=== PATIENT | female | born 1945 | race Caucasian/White ===

== ENCOUNTER 2017-01-21 12:28 | Inpatient (IN) | payer OTHER, MEDICARE ==
[~2017-01-21] VITALS: Ht 167.6 cm; Wt 108.6 kg
[~2017-01-21 12:28] MED LIST: BACTRIM DS 8001 TAB PO; CLINDAMYCIN HY300 MG PO
--- NOTE | 2017-01-21 12:40 | NUR ---
BIBA FROM HOME C/O SOB AND COUGH FOR 3-5 DAYS, "FEELS LIKE I HAVE BRONCHITIS", FOUND BY EMS TO HAVE RA SAT IN HIGH 80S. ON ARRIVAL RA SAT 85, MID 90S ON 3L 02, PT INITIALLY DENIES LUNG DISEASE THEN STATES "ONE DOCTOR SAID I HAD COPD BUT I THINK HE'S WRONG." HX SMOKING. HX AFIB, AFIB ON ARRIVAL 90-120S, DENIES CP.
--- NOTE | 2017-01-21 13:03 | ED DYSPNEA/ASTHMA COMPLAINT ---
See Addendum History of Present Illness General Chief Complaint: Dyspnea (COPD, CHF, Other) Stated Complaint: BIBA DYSPNEA Source: patient Exam Limitations: no limitations Vital Signs & Intake/Output Vital Signs & Intake/Output Vital Signs Date Time Temp Pulse Resp B/P Pulse O2 O2 Flow FiO2 Ox Delivery Rate 01/22 2104 Nasal 4.0L Cannula 01/21 1939 97.4 123 22 154/64 94 Nasal 3.0L Cannula 01/21 1830 98.5 106 22 146/76 93 Nasal 3.0L Cannula 01/21 1809 98.5 126 22 139/85 01/21 1759 98.5 126 22 139/85 94 Nasal 3.0L Cannula 01/21 1616 98.8 112 25 128/59 95 Nasal 3.0L Cannula 01/21 1554 93 Nasal 3.5L Cannula 01/21 1437 100.4 116 22 117/52 94 Nasal 3.0L Cannula 01/21 1334 105 26 142/60 98 Aerosol 6.0L Mask 01/21 1323 93 Nasal 3.0L Cannula 01/21 1310 99.8 131 22 151/67 01/21 1247 96 Nasal 3.0L Cannula 01/21 1234 99.8 131 22 151/67 95 Nasal 3.0L Cannula Allergies Coded Allergies: Penicillins (Severe, HYPOTENSION 01/21/17) clindamycin (Severe, RASH, HIVES 01/21/17) Triage Note: BIBA FROM HOME C/O SOB AND COUGH FOR 3-5 DAYS, "FEELS LIKE I HAVE BRONCHITIS", FOUND BY EMS TO HAVE RA SAT IN HIGH 80S. ON ARRIVAL RA SAT 85, MID 90S ON 3L 02, PT INITIALLY DENIES LUNG DISEASE THEN STATES "ONE DOCTOR SAID I HAD COPD BUT I THINK HE'S WRONG." HX SMOKING. HX AFIB, AFIB ON ARRIVAL 90-120S, DENIES CP. Triage Nurses Notes Reviewed? yes Onset: Gradual Duration: day(s): (3) Timing: recent history Severity: moderate Activities at Onset: none Prior Episodes/Possible Cause: occasional episodes Modifying Factors: Improves With: immobilization. Worsens With: movement. HPI: Patient is a 71-year-old female with history of atrial fibrillation, COPD, peripheral vascular disease presenting to the emergency department with chief complaint of increasing shortness of breath, productive cough of yellow sputum over the past 3 days. Tactile fevers and chills. No sick contacts or recent travel. She does not wear oxygen at home. Denies any palpitations. No abdominal pain. No nausea or vomiting. Denies any change in by mouth intake. Denies any urinary symptoms. Exertion seems to make her symptoms worse nothing seems to make it better. Denies taking anything [id number] to help with her symptoms. (ANI GNA) Reconcile Medications Aspirin (Aspirin*) 325 MG TABLET 1 TAB PO DAILY A FIB (Reported) Metoprolol Succinate 100 MG TAB.ER.24H 1 TAB PO DAILY HEART (Reported) Venlafaxine HCl (Venlafaxine HCl ER) 75 MG CAP.ER.24H 1 CAP PO DAILY MENTAL HEALTH (Reported) (JANINA BILLINGS DO) Past History Travel History Traveled to [place] past 21 day No Medical History Any Pertinent Medical History? 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 No (ANI GAN) Review of Systems Review of Systems Constitutional: Reports: fever, malaise. Comments Review of systems: See HPI, All other systems negative. Constitutional, no chills fever or weight loss HEENT: No visual changes no sore throat Cardiovascular: No chest pain ,palpitation , orthopnea or ankle swelling Skin, no jaundice no rashes Respiratory: No hemoptysis GI: No nausea no vomiting : No dysuria No hematuria Muscle skeletal: no back pain, no neck pain, Neurologic: No numbness no confusion, no headaches Psych: No stress anxiety or depression,. Heme/endocrine: No bruising no bleeding no polyuria or polydipsia Immunology: No splenectomy or history of AIDS (ANI GAN) Physical Exam Physical Exam General Appearance: well developed/nourished, alert, awake, mild distress Respiratory: INCREASED RESPIRATORY DISTRESS Comments: Well-developed well-nourished person in mild to moderate distress HEENT: Normal EENT exam, extraocular motion intact, no nystagmus. Pupils equally round and reactive to light and accommodation. Nose is atraumatic. External auditory canal and Tympanic membranes clear. Pharynx is mildly erythematous, no exudate, clearing secretions without difficulty. Oral mucosa slightly dry. No swelling or edema. Neck: Supple, no lymphadenopathy, normal range of motion without pain or tenderness Back: Nontender, no CVA tenderness. Full range of motion Cardiovascular: Tachycardic rate, irregular rhythm. Respiratory: Chest nontender. Moderate respiratory distress..diffuse rhonchi to auscultation bilaterally Abdomen: Soft, nontender nondistended, no appreciable organomegaly. Normal bowel sounds. No ascites Extremity: 3+ pitting in the lower extremities bilaterally., no calf tenderness to palpation, normal and equal pulses. Neuro: Alert oriented x3 Skin: Mild erythema in the right lower extremity, no warmth to palpation. Psych: Mood and affect is normal, memory and judgment is normal. Core Measures ACS in differential dx? Yes Severe Sepsis Present: Yes BC x2: Yes Lactic Acid x2: Yes IV ABX Broad Spectrum: Yes NS/LR Started: Yes Septic Shock Present: No (RAN SYED,ANI) Progress Differential Diagnosis: asthma, bronchitis, CHF, COPD, musculoskeletal pain, pulmonary embolism, pneumonia Plan of Care: Orders Procedure Date/time Status Heart Healthy Diet 01/22 B Active CBC WITHOUT DIFFERENTIAL 01/22 0600 Active BASIC ELECTROLYTES PLUS BUN&CR 01/22 0600 Active TROPONIN LEVEL 01/22 0100 Active EKG 01/22 0100 Active RT: Evaluation 01/21 2046 Active OXYGEN SETUP (GEN) 01/21 2000 Complete Intake & Output 01/21 1940 Active TROPONIN LEVEL 01/21 1900 Complete LACTIC ACID 01/21 1900 Complete EKG 01/21 1900 Active Patient Data 01/21 1757 Active TRC EVALUATION (GEN) 01/21 1721 Complete Pathway - chart 01/21 172 Active House Staff 01/21 1721 Active Patient Data 01/21 1721 Active RAPID VIRAL INFLUENZA A 01/21 172 Complete CULTURE,URINE 01/21 1721 Active STREP PNEUMO URINARY ANTIGEN 01/21 172 Active LEGIONELLA URINARY ANTIGEN 01/21 172 Active LOWER RESPIRATORY CULTURE 01/21 1721 Active URINALYSIS 01/21 1721 Complete Code Status 01/21 1721 Active CULTURE,STOOL 01/21 1706 Active C.DIFFICILE 01/21 1706 Active US-EXT BILAT VENOUS DOPPLER 01/21 1703 Active Patient Data 01/21 1631 Active Admit to inpatient 01/21 1627 Active LACTIC ACID 01/21 1603 Complete BLOOD CULTURE 01/21 1505 Active Telemetry/Filer Metal Patterns 01/21 1303 Active TROPONIN LEVEL 01/21 1303 Complete PARTIAL THROMBOPLASTIN TIME 01/21 1303 Complete PROTHROMBIN TIME 01/21 1303 Complete LACTIC ACID 01/21 1303 Complete COMPREHENSIVE METABOLIC PANEL 01/21 1303 Complete CBC WITHOUT DIFFERENTIAL 01/21 1303 Complete B-TYPE NATRIURETIC PEP (BNP) 01/21 1303 Complete EKG 01/21 1230 Active THERAPIST ORDERS 01/21 UNK Complete VTE Mechanical Prophylaxis 01/21 UNK Active Vital Signs 01/21 UNK Active Current Medications Sig/Harmony Start time Last Medication Dose Stop Time Status Admin Aspirin 325 MG DAILY 01/22 1000 AC (Aspirin) Azithromycin 500 MG DAILY 01/22 1000 AC (Zithromax) Sodium Chloride 250 ML (Normal Saline 0.9%) Ceftriaxone Sodium 1,000 MG DAILY 01/22 1000 AC (Rocephin) Metoprolol Succinate 100 MG DAILY 01/22 1000 AC (Toprol Xl) Venlafaxine HCl 75 MG DAILY 01/22 1000 AC (Effexor Xr) Heparin Sodium 5,000 UNIT Q8 01/21 2200 AC (Porcine) Methylprednisolone 40 MG Q12 01/21 2200 AC (Solumedrol) Acetaminophen 650 MG Q6P PRN 01/21 1730 AC (Tylenol) Acetaminophen/ 1 TAB Q6P PRN 01/21 1730 AC Hydrocodone Bitart (Vicodin) Oxycodone/ 2 TAB Q6P PRN 01/21 1730 AC Acetaminophen (Percocet) Sodium Chloride 1,000 ML ONCE ONE 01/21 1730 AC (Normal Saline 0.9%) 01/22 0129 Laboratory Tests 01/21/17 1935: Lactic Acid 1.8, Troponin I 0.02 01/21/17 175: Urine Color YEL, Urine Clarity HAZY H, Urine pH 6.0, Ur Specific [place] >= 1.030, Urine Protein 100 H, Urine Ketones NEG, Urine Nitrite NEG, Urine Bilirubin NEG, Urine Urobilinogen 0.2, Ur Leukocyte Esterase NEG, Ur Microscopic SEDIMENT EXAMINED, Urine RBC 1-3, Urine WBC 1-3 H, Ur Epithelial Cells MANY H, Urine Mucus FEW, Urine Hemoglobin TRACE-INTACT, Urine Glucose 250 H 01/21/17 1543: Lactic Acid 2.5 H 01/21/17 1317: Anion Gap 7, Estimated GFR > 60, BUN/Creatinine Ratio 30.0 H, Glucose 248 H, Lactic Acid 1.9, Calcium 8.6, Total Bilirubin 0.9, AST 59 H, ALT 91 H, Alkaline Phosphatase 99, Troponin I < 0.01, Sgk-J-Fxdymewmeys Pept 442 H, Total Protein 6.4, Albumin 3.4 L, Globulin 3.0, Albumin/Globulin Ratio 1.1, PT 12.1, INR 1.15, APTT 27, CBC w Diff NO MAN DIFF REQ, RBC 4.95, MCV 89.4, MCH 29.7, RDW 12.9, MPV 9.5, Gran % 74.9, Lymphocytes % 15.8 L, Monocytes % 8.1, Eosinophils % 0.7, Basophils % 0.5, Absolute Granulocytes 5.4, Absolute Lymphocytes 1.1 L, Absolute Monocytes 0.6, Absolute Eosinophils 0.1, Absolute Basophils 0, PUBS MCHC 33.2 Microbiology 01/21 1757 URINE ROUT: Legionella Antigen - RES 01/21 1757 URINE ROUT: Streptococcus pneumoniae Antigen (M - RES 01/21 1757 URINE ROUT: Urine Culture - RES 01/22 1756 NASOPHARYN: Influenza Virus A & B Rapid Smear - COMP 01/21 172 LOWER RESP: Respiratory Culture - COLB 01/21 172 LOWER RESP: Gram Stain - COLB 01/21 170 STOOL: Clostridium difficile Toxin A & B - COLB 01/21 170 STOOL: Stool Culture - COLB 01/21 1543 BLOOD: Blood Culture - RECD 01/21 1230 BLOOD: Blood Culture - RECD Diagnostic Imaging: Viewed by Me: Radiology Read, CT Scan. Discussed w/RAD: Radiology Read, CT Scan. Radiology Impression: PATIENT: JOCELYN HAYES PRESENT AGE: 71 PATIENT ACCOUNT NO: [id number] : 44 LOCATION: [facility] ORDERING PHYSICIAN: ANI SYED SERVICE DATE: 03/23/17-1413 EXAM TYPE: CAT - CT CHEST WO IV CONTRAST EXAMINATION: CT CHEST WITHOUT CONTRAST CLINICAL INFORMATION: Shortness of breath, cough COMPARISON: Frontal view of the chest 01/21/17 TECHNIQUE: Multidetector volumetric CT imaging of the chest was done. Axial MIP volume rendering provided. Sagittal and coronal reformatted images were obtained. DLP: 935 mGy-cm FINDINGS: LAYOUT FORMER: Tortuous aorta. Prominent cardiac silhouette. No lobar or segmental consolidation. Gaseous distention in the visualized abdomen LUNGS: No abnormality of the trachea or mainstem bronchi. Right lung: Noncalcified nodule or localized area of airway thickening Central aspect anterior segment right upper lobe 01/21/17, series 5, image 231-0.4 cm Pleural-based noncalcified nodule in the periphery of the superior segment right lower lobe laterally 01/21/17, series 5, image 263-mean diameter 0.4 cm There are 2 adjacent noncalcified nodules in the lateral segment middle lobe 01/21/17, series 5, image 274-0.4 cm each Noncalcified subpleural nodule lateral aspect right lower lobe 01/21/17, series 5, image 280-0.4 cm There is some motion artifact limiting assessment of the bases. There are some scattered poorly defined densities which could represent airway thickening. Small nodules could be present. Left lung: There are some tree-in-bud opacities in the apical posterior left upper lobe. There is moderate and small airway thickening in the mid and lower left lung. There is some airway thickening in the right lower lung. MEDIASTINUM: There are some scattered nonenlarged mediastinal lymph nodes. The main pulmonary artery is prominent. There is no pericardial fluid. The left atrium is dilated. There is no suspicious abnormality of the esophagus. There is ectasia of the descending aorta (4.2 cm at the level of left atrium) PLEURA: There is no pleural effusion. No pleural mass or thickening. AXILLA: No lymphadenopathy. UPPER ABDOMEN: I suspect fatty change in the liver. No suspicious mass. OSSEOUS STRUCTURES: No suspicious focal lesion IMPRESSION: There is some cardiomegaly. There is no edema. There is a small area of tree-in- bud opacity in the apical posterior left upper lobe which may represent a small area of pneumonia. There is thickening of some of the small airways perhaps related to reactive airways disease or chronic inflammation. There are several nodules present. The largest has a mean diameter of 0.4 cm According to the UPDATED 2017 Fleischner Society recommendations, the advised follow-up imaging for solid nodules < 6 mm is: LOW RISK PATIENT: No routine follow-up. HIGH RISK PATIENT: Optional CT at 12 months. DICTATED BY: RENETTA VARGAS MD DATE/TIME DICTATED:01/21/171443 [facility] DIRECTOR:LADI DATE/TIME TRANSCRIBED:1443 CONFIDENTIAL, DO NOT COPY WITHOUT APPROPRIATE AUTHORIZATION. < Electronically signed in Other Vendor System> , PATIENT: JOCELYN HAYES PRESENT AGE: 71 PATIENT ACCOUNT NO: [id number] : 44 LOCATION: [facility] ORDERING PHYSICIAN: ANI SYDE SERVICE DATE: 01/21/17 EXAM TYPE: CAT - CT CHEST WO IV CONTRAST EXAMINATION: CT CHEST WITHOUT CONTRAST CLINICAL INFORMATION: Shortness of breath , cough COMPARISON: Frontal view of the chest 01/21/17 TECHNIQUE: Multidetector volumetric CT imaging of the chest was done. Axial MIP volume rendering provided. Sagittal and coronal reformatted images were obtained. DLP: 935 mGy-cm FINDINGS: LAYOUT FORMER: Tortuous aorta. Prominent cardiac silhouette. No lobar or segmental consolidation. Gaseous distention in the visualized abdomen LUNGS: No abnormality of the trachea or mainstem bronchi. Right lung: Noncalcified nodule or localized area of airway thickening Central aspect anterior segment right upper lobe 01/21/17, series 5, image 231-0.4 cm Pleural-based noncalcified nodule in the periphery of the superior segment right lower lobe laterally 01/21, series 5, image 263-mean diameter 0.4 cm There are 2 adjacent noncalcified nodules in the lateral segment middle lobe 01/21/17, series 5, image 274-0.4 cm each Noncalcified subpleural nodule lateral aspect right lower lobe 01/21/17, series 5, image 280-0.4 cm There is some motion artifact limiting assessment of the bases. There are some scattered poorly defined densities which could represent airway thickening. Small nodules could be present. Left lung: There are some tree-in-bud opacities in the apical posterior left upper lobe. There is moderate and small airway thickening in the mid and lower left lung. There is some airway thickening in the right lower lung. MEDIASTINUM: There are some scattered nonenlarged mediastinal lymph nodes. The main pulmonary artery is prominent. There is no pericardial fluid. The left atrium is dilated. There is no suspicious abnormality of the esophagus. There is ectasia of the descending aorta (4.2 cm at the level of left atrium) PLEURA: There is no pleural effusion. No pleural mass or thickening. AXILLA: No lymphadenopathy. UPPER ABDOMEN: I suspect fatty change in the liver. No suspicious mass. OSSEOUS STRUCTURES: No suspicious focal lesion IMPRESSION: There is some cardiomegaly. There is no edema. There is a small area of tree-in-bud opacity in the apical posterior left upper lobe which may represent a small area of pneumonia. There is thickening of some of the small airways perhaps related to reactive airways disease or chronic inflammation. There are several nodules present. The largest has a mean diameter of 0.4 cm According to the UPDATED 2017 Fleischner Society recommendations, the advised follow-up imaging for solid nodules < 6 mm is: LOW RISK PATIENT: No routine follow-up. HIGH RISK PATIENT: Optional CT at 12 months. DICTATED BY: RENETTA VARGAS MD DATE/TIME DICTATED:01/21/171443 [facility] DIRECTOR:LADI DATE/TIME TRANSCRIBED:01/21/171443 CONFIDENTIAL, DO NOT COPY WITHOUT APPROPRIATE AUTHORIZATION. <Electronically signed in Other Vendor System> SIGNED BY: RENETTA VARGAS MD 01/21/17 1501 Initial ED EKG: RAPID ATRIAL FIBRILLATION AT 135 BPM Prior EKG: changed Comments: On arrival patient in respiratory distress with diffuse rhonchi on exam. She does have lower extremities edema. Patient also in rapid A. fib on EKG and the monitor. Patient will for chest x-ray, CBC, CMP, troponin, telemetry monitoring. Patient given IV Cardizem for rate control. She reports that she normally takes metoprolol to help with rate control. Has been taking it. Also given to attempt treatment to see if he can break up some of the rhonchi. Patient is afebrile at this time but reports history of fevers over the past couple days. We will draw blood cultures. Patient informed of all imaging results and x-ray results. CT further clarifies the patient does have pneumonia. No elevation in white blood cell count time the patient is now spiking a fever. Hypoxic to 82% on room air with ambulation of 10 feet. It was strongly advised for this patient to stay, be admitted for IV antibiotics, oxygen therapy which is new for this patient, rate control for rapid A. fib. Atrial fibrillation seems to be responding to Cardizem EXCEPT patient exerts herself heart rate goes back to up to 120 to 130. (RAN SYED,ANI) Radiology Impression: PATIENT: JOCELYN HAYES PRESENT AGE: 71 PATIENT ACCOUNT NO: [id number] : 44 LOCATION: [facility] ORDERING PHYSICIAN: ANI SYDE SERVICE DATE: 01/21/17 EXAM TYPE: CAT - CT CHEST WO IV CONTRAST EXAMINATION: CT CHEST WITHOUT CONTRAST CLINICAL INFORMATION: Shortness of breath, cough COMPARISON: Frontal view of the chest 01/21/17 TECHNIQUE: Multidetector volumetric CT imaging of the chest was done. Axial MIP volume rendering provided. Sagittal and coronal reformatted images were obtained. DLP: 935 mGy-cm FINDINGS: LAYOUT FORMER: Tortuous aorta. Prominent cardiac silhouette. No lobar or segmental consolidation. Gaseous distention in the visualized abdomen LUNGS: No abnormality of the trachea or mainstem bronchi. Right lung: Noncalcified nodule or localized area of airway thickening Central aspect anterior segment right upper lobe 01/21/17, series 5, image 231-0.4 cm Pleural-based noncalcified nodule in the periphery of the superior segment right lower lobe laterally 01/21/17, series 5, image 263-mean diameter 0.4 cm There are 2 adjacent noncalcified nodules in the lateral segment middle lobe 01/21/17, series 5, image 274-0.4 cm each Noncalcified subpleural nodule lateral aspect right lower lobe 01/21/17, series 5, image 280-0.4 cm There is some motion artifact limiting assessment of the bases. There are some scattered poorly defined densities which could represent airway thickening. Small nodules could be present. Left lung: There are some tree-in-bud opacities in the apical posterior left upper lobe. There is moderate and small airway thickening in the mid and lower left lung. There is some airway thickening in the right lower lung. MEDIASTINUM: There are some scattered nonenlarged mediastinal lymph nodes. The main pulmonary artery is prominent. There is no pericardial fluid. The left atrium is dilated. There is no suspicious abnormality of the esophagus. There is ectasia of the descending aorta (4.2 cm at the level of left atrium) PLEURA: There is no pleural effusion. No pleural mass or thickening. AXILLA: No lymphadenopathy. UPPER ABDOMEN: I suspect fatty change in the liver. No suspicious mass. OSSEOUS STRUCTURES: No suspicious focal lesion IMPRESSION: There is some cardiomegaly. There is no edema. There is a small area of tree-in- bud opacity in the apical posterior left upper lobe which may represent a small area of pneumonia. There is thickening of some of the small airways perhaps related to reactive airways disease or chronic inflammation. There are several nodules present. The largest has a mean diameter of 0.4 cm According to the UPDATED 2017 Fleischner Society recommendations, the advised follow-up imaging for solid nodules < 6 mm is: LOW RISK PATIENT: No routine follow-up. HIGH RISK PATIENT: Optional CT at 12 months. DICTATED BY: RENETTA VARGAS MD DATE/TIME DICTATED:01/21/171443 [facility] DIRECTOR:LADI DATE/TIME TRANSCRIBED:1443 CONFIDENTIAL, DO NOT COPY WITHOUT APPROPRIATE AUTHORIZATION. < Electronically signed in Other Vendor System> (JANINA BILLINGS DO) Departure Departure Time of Disposition: 1626 Disposition: STILL A PATIENT Condition: Stable Clinical Impression Primary Impression: Pneumonia Qualifiers: Pneumonia type: due to unspecified organism Laterality: right Lung location: lower lobe of lung Qualified Code: J18.1 - Lobar pneumonia, unspecified organism Secondary Impressions: Lactic acidosis, Rapid atrial fibrillation Referrals: YUNG PLUMMER,CELE Ordoñez (PCP/Family) Departure Forms: Customer Survey General Discharge Information Admission Note Spoke With: STEFANI PLUMMER,EDGARDO Documentation of Exam: Documentation of any treatments & extenuating circumstances including Concerns Regarding Discharge (functional status, medication knowledge or non-compliance, living conditions, etc.) that warrant an admission rather than observation: Patient requiring telemetry monitoring, IV antibiotics, blood cultures to return to rule out sepsis, supplemental oxygen which is new for this patient, may require pulmonology consultation. May require cardiology consultation and secondary to rapid atrial fibrillation. Discharge at this time would be medically harmful. Titration of O2. (ANI GAN) Admission Note Documentation of Exam: Documentation of any treatments & extenuating circumstances including Concerns Regarding Discharge (functional status, medication knowledge or non-compliance, living conditions, etc.) that warrant an admission rather than observation: 01/21/17 4:33 PM I've seen and personally examined the patient. I have evaluated her numerous times. She came in rapid A. fib and difficulty breathing. She was given Cardizem. She has congestion consistent with COPD and is an ex-smoker. She is being admitted to the hospitalist service for further care. Her oxygen saturation is adequate on O2. PA/HEEL SLUGGER Co-Sign Statement Statement: ED Attending supervision documentation- [x] I saw and evaluated the patient. I have also reviewed all the pertinent lab results and diagnostic results. I agree with the findings and the plan of care as documented in the PA's/HEEL SLUGGER's documentation. [] I have reviewed the ED Record and agree with the PA's/HEEL SLUGGER's documentation. [] Additions or exceptions (if any) to the PAs/HEEL SLUGGER's note and plan are summarized below: [] 71-year-old female was seen for rapid A. fib and difficulty breathing. She has a history of COPD. She had bilateral expiratory wheezes. CT scan showed likely pneumonia. She was admitted to the hospital for further care. (JANINA BILLINGS DO) Critical Care Note Critical Care Note Critical Care Time: 75-104 min (ANI GAN)
[2017-01-21 13:25] LABS: ABSOLUTE BASOPHIL COUNT 0 /CUMM (0.0-0.2); ABSOLUTE EOSINOPHIL COUNT 0.1 /CUMM (0.0-0.7); ABSOLUTE GRANULOCYTE CT 5.4 /CUMM (1.4-6.5); ABSOLUTE LYMPH COUNT 1.1 /CUMM (1.2-3.4); ABSOLUTE MONOCYTE COUNT 0.6 /CUMM (0.10-0.60); BASOPHIL % 0.5 % (0.0-2.0); EOSINOPHIL % 0.7 % (0-5); GRANULOCYTE % 74.9 % (42.2-75.2); HEMATOCRIT 44.2 % (37-47); MEAN CORPUSCULAR HGB 29.7 PG (27.0-31.0); MEAN CORPUSCULAR HGB CONC 33.2 G/DL (33.0-37.0); MEAN CORPUSCULAR VOLUME 89.4 FL (81.0-99.0); MEAN PLATELET VOLUME 9.5 FL (7.4-10.4); PLATELET COUNT 184 /CUMM (130-400); RBC DISTRIBUTION WIDTH 12.9 % (11.5-14.5); RED BLOOD CELL CT 4.95 /CUMM (4.20-5.40); WHITE BLOOD CELL COUNT 7.2 /CUMM (4.8-10.8)
--- NOTE | 2017-01-21 13:33 | NUR ---
CARDIZEM GIVEN, HR CHANGED FROM 100S-140S TO 70S-120S, REMAINS VERY IRREGULAR. NEB TX IN PROGRESS, PCXR IN PROGRESS. BLOODWORK SENT
[2017-01-21 13:35] LABS: PT 12.1 SEC (9.4-12.5); PTT 27 SEC (25-37)
--- NOTE | 2017-01-21 14:00 | RADIOLOGY REPORT ---
EXAMINATION: XR PORTABLE CHEST CLINICAL INFORMATION: Cough and shortness of breath. COMPARISON: None TECHNIQUE: Portable AP 80 degrees view of the chest was obtained. FINDINGS: The lung volumes are hypoinflated. There is crowding of the markings at the lung bases. Possible opacity at the right lung base. The cardiac silhouette appears enlarged with vascular congestion. IMPRESSION: Shallow inspiration limits the examination. There may be a focal area of consolidation at the right lung base. When feasible, recommend PA and lateral chest radiograph for further evaluation.
--- NOTE | 2017-01-21 14:22 | NUR ---
TO CHEST CT NOW. HR 90S-110S, WOB IMPROVED AFTER NEB.
[2017-01-21] MEDS ORDERED: METOPROLOL SUC100 M2 PO (14:30)
[2017-01-21] MEDS ORDERED: VENLAFAXINE HCL75 M1 PO (14:30)
--- NOTE | 2017-01-21 15:01 | CT SCAN REPORT ---
EXAMINATION: CT CHEST WITHOUT CONTRAST CLINICAL INFORMATION: Shortness of breath, cough COMPARISON: Frontal view of the chest 01/21/17 TECHNIQUE: Multidetector volumetric CT imaging of the chest was done. Axial MIP volume rendering provided. Sagittal and coronal reformatted images were obtained. DLP: 935 mGy-cm FINDINGS: GEODETIC COMPUTATOR: Tortuous aorta. Prominent cardiac silhouette. No lobar or segmental consolidation. Gaseous distention in the visualized abdomen LUNGS: No abnormality of the trachea or mainstem bronchi. Right lung: Noncalcified nodule or localized area of airway thickening Central aspect anterior segment right upper lobe 01/21/17, series 5, image 231-0.4 cm Pleural-based noncalcified nodule in the periphery of the superior segment right lower lobe laterally 01/21/17, series 5, image 263-mean diameter 0.4 cm There are 2 adjacent noncalcified nodules in the lateral segment middle lobe 01/21/17, series 5, image 274-0.4 cm each Noncalcified subpleural nodule lateral aspect right lower lobe 01/21/17, series 5, image 280-0.4 cm There is some motion artifact limiting assessment of the bases. There are some scattered poorly defined densities which could represent airway thickening. Small nodules could be present. Left lung: There are some tree-in-bud opacities in the apical posterior left upper lobe. There is moderate and small airway thickening in the mid and lower left lung. There is some airway thickening in the right lower lung. MEDIASTINUM: There are some scattered nonenlarged mediastinal lymph nodes. The main pulmonary artery is prominent. There is no pericardial fluid. The left atrium is dilated. There is no suspicious abnormality of the esophagus. There is ectasia of the descending aorta (4.2 cm at the level of left atrium) PLEURA: There is no pleural effusion. No pleural mass or thickening. AXILLA: No lymphadenopathy. UPPER ABDOMEN: I suspect fatty change in the liver. No suspicious mass. OSSEOUS STRUCTURES: No suspicious focal lesion IMPRESSION: There is some cardiomegaly. There is no edema. There is a small area of tree-in-bud opacity in the apical posterior left upper lobe which may represent a small area of pneumonia. There is thickening of some of the small airways perhaps related to reactive airways disease or chronic inflammation. There are several nodules present. The largest has a mean diameter of 0.4 cm According to the UPDATED 2017 Fleischner Society recommendations, the advised follow-up imaging for solid nodules < 6 mm is: LOW RISK PATIENT: No routine follow-up. HIGH RISK PATIENT: Optional CT at 12 months.
--- NOTE | 2017-01-21 15:27 | NUR ---
PA AT BEDSIDE. PT REQUESTING TO LEAVE AMA. AMBULATORY SAT WALKING LESS THAN 10FT 82 AND PT VERY DISTRESSED, ONLY ABLE TO SPEAK SINGLE WORDS, C/O FEELING "WEAK." ASSISTED TO STRETCHER AND BACK ON . HR IN 140S WITH AMBULATION. 92 SAT RECOVERED TO LOW 90S WITHIN 2-3 MIN.
--- NOTE | 2017-01-21 15:51 | NUR ---
ZITHROMAX UP AFTER 2ND SET CULTURES SENT. RT AT BEDSIDE FOR ALBUTEROL TX. RESTING HR 90-125 AFIB.
--- NOTE | 2017-01-21 16:08 | NUR ---
PT APPEARS MUCH MORE COMFORTABLE WITH NOTABLE DECREASE IN COUGHING AFTER NEB TX. ZITHROMAX INFUSING.
--- NOTE | 2017-01-21 16:09 | NUR ---
CRITICAL TEST RESULTS [id number] JOCELYN HAYES 71 F TESTS AND RESULTS: LACTIC 2.5 Results received and read back by: RADHA ALVARADO Results received date and time: 01/21/17 1609 The following provider was notified of the results, and read the results back: YAHAIRA TONG Notified date and time: 01/21/17 at 1610
--- NOTE | 2017-01-21 17:08 | History & Physical ---
IFEANYI PLUMMER,[facility] 01/21/17 1707: General Information and [facility] MD Statement: I have seen and personally examined JOCELYN HAYES and documented this H&P. The patient is a 71 year old F who presented with a patient stated chief complaint of [shortness of breath]. Source of Information: patient Exam Limitations: no limitations History of Present Illness: Ms. Hayes is 71 year old female with past medical history of atrial fibrillation not on anticoagulation, peripheral vascular disease, bronchitis/ COPD, anxiety and depression who presented to ED with chief complaint of shortness of breath for the last 3 days. Patient reported that since Wednesday she started to have shortness of breath on exertion associated with dry cough, wheeze, chills. Patient denied fever, chest pain, palpitation. She reported using adin-tix-ohewojj Vicks-NyQuil but didn't help, called her PCP who asked her to come to ED for evaluation. Patient reported history of smoking, quit 4 years ago, she mentioned that she used to have bronchitis but never had an episode after she quit smoking 4 years ago. Patient denied abdominal pain, nausea, vomiting, reported episodes of diarrhea. Negative history for sick contact, travel, patient didn't have the flu vaccine this season. She has no clear diagnosis of COPD, not on home oxygen, not following with any stock speculator, frequent history of bronchitis. Allergies/Medications Allergies: Coded Allergies: Penicillins (Severe, HYPOTENSION 01/21/17) clindamycin (Severe, RASH, HIVES 01/21/17) Past History Travel History Traveled to [place] past 21 day No Medical History Neurological: NONE EENT: NONE Cardiovascular: AFIB, PVD Respiratory: bronchitis Gastrointestinal: NONE Hepatic: NONE Renal: NONE Musculoskeletal: fracture, ELBOW FX CELLULITIS Psychiatric: anxiety, depression Endocrine: NONE Blood Disorders: NONE Cancer(s): NONE CHEMIST ORGANIC/Reproductive: NONE Surgical History Surgical History: non-contributory Past Family/Social History Psychosocial History Who Do You Live With? self ETOH Use: denies use Illicit Drug Use: denies illicit drug use Employment History Employment Retired Review of Systems Review of Systems Constitutional: Reports: chills. Denies: fever. Cardiovascular: Denies: chest pain, orthopena, palpitations. Respiratory: Reports: cough, short of breath, wheezing. Denies: sputum production. GI: Reports: diarrhea. Denies: abdominal pain, nausea, vomiting. Genitourinary: Denies: dysuria. Exam & Diagnostic Data Last 24 Hrs of Vital Signs/I&O Vital Signs Date Time Temp Pulse Resp B/P Pulse O2 O2 Flow FiO2 Ox Delivery Rate 01/21 1830 98.5 106 22 146/76 93 Nasal 3.0L Cannula 01/21 1809 98.5 126 22 139/85 01/21 1759 98.5 126 22 139/85 94 Nasal 3.0L Cannula 01/21 1616 98.8 112 25 128/59 95 Nasal 3.0L Cannula 01/21 1554 93 Nasal 3.5L Cannula 01/21 1437 100.4 116 22 117/52 94 Nasal 3.0L Cannula 01/21 1334 105 26 142/60 98 Aerosol 6.0L Mask 01/21 1323 93 Nasal 3.0L Cannula 01/21 1310 99.8 131 22 151/67 01/21 1247 96 Nasal 3.0L Cannula 01/21 1234 99.8 131 22 151/67 95 Nasal 3.0L Cannula Intake & Output 01/21 1600 01/21 0800 01/21 0000 Intake Total Output Total Balance Patient 108.862 kg Weight Physical Exam General Appearance Alert, Oriented X3, Cooperative, No Acute Distress Skin No Rashes, No Breakdown, No Significant Lesion HEENT Atraumatic, PERRLA, EOMI, dry mucous membranes Neck Supple Cardiovascular Normal S1, Normal S2, No Murmurs, irregular Lungs bilateral decreased air entry, diffuse rhonchi and fine expiratory wheeze Abdomen Normal Bowel Sounds, Soft, No Tenderness Neurological Normal Speech, Strength at 5/5 X4 Ext, Normal Tone, Sensation Intact, Cranial Nerves 3-12 NL, Reflexes 2+ Extremities No Clubbing, No Cyanosis, Normal Pulses, right leg erythema, warm, small crusted wound 1x1. Assessment/Plan Assessment: Ms. Hayes is 71 year old female with past medical history of atrial fibrillation not on anticoagulation, peripheral vascular disease, bronchitis/ COPD, anxiety and depression who presented to ED with chief complaint of shortness of breath for the last 3 days. On admission Vital signs Temperature 98.8, MAXIMUM TEMPERATURE 100.4, pulse 112, blood pressure 128/59, respiratory rate 25, 3 L nasal cannula saturation 95% Labs WBC 7.2, H&H 14.7/44.2, platelet 184, sodium 131, potassium 4.3, chloride 94, lactic acid 2.5, AST 59, ALT 91, proBNP 442, coagulation profile WNL, UA negative for UTI Imaging Chest x-ray IMPRESSION: Shallow inspiration limits the examination. There may be a focal area of consolidation at the right lung base. When feasible, recommend PA and lateral chest radiograph for further evaluation. CT chest IMPRESSION: There is some cardiomegaly. There is no edema. There is a small area of tree-in-bud opacity in the apical posterior left upper lobe which may represent a small area of pneumonia. There is thickening of some of the small airways perhaps related to reactive airways disease or chronic inflammation. There are several nodules present. The largest has a mean diameter of 0.4 cm Problem list #COPD exacerbation #Acute hypoxic respiratory failure #Community-acquired pneumonia versus a typical pneumonia #Right lower limb cellulitis/DVT #Atrial fibrillation with rapid ventricular response #Spesis #COPD exacerbation #Acute hypoxic respiratory failure #Community-acquired pneumonia versus a typical pneumonia #Sepsis due to pneumonia and/or cellulitis infectious process -Admit to general med floor -Start ceftriaxone and azithromycin to cover the pneumonia and right lower leg cellulitis -Continue nasal cannula at 3 L, titrate as tolerated keep saturation more than 92% -TRC and nebs -Follow up lactic acid and trend down #Right lower limb cellulitis/DVT -We'll obtain venous Doppler ultrasound to rule out DVT -Ceftriaxone and azithromycin will cover for cellulitis as well #Atrial fibrillation with rapid ventricular response -Continue home medication -Obtain cardiology consultation, Dr. Bales -[facility] -DVT prophylaxis heparin subcutaneous -Code full Consultation cardiology As Ranked By This Provider Problem List: 1. Cellulitis 2. Lactic acidosis 3. Rapid atrial fibrillation 4. Pneumonia Qualifiers Pneumonia type: due to unspecified organism Laterality: right Lung location: lower lobe of lung Qualified Code: J18.1 - Lobar pneumonia, unspecified organism Core Measures/Miscellaneous Acute Coronary Syndrome ACS Diagnosis: No Cerebrovascular Accident CVA/TIA Diagnosis: No Congestive Heart Failure CHF Diagnosis: No Venous Thromboembolism VTE Risk Factors: Age > 40 [facility] V[facility] prophylaxis d/t: Suspected DVT of LE No VTE Pharm Prophylaxis d/t: No contraindications VTE Diagnosis: No VTE Type: Deep Venous Thrombosis VTE Confirmed by (Test): UNILATERAL VENOUS DOPPLER Severe Sepsis Severe Sepsis Present: Yes BC x2: Yes Lactic Acid x2: Yes IV ABX Broad Spectrum: Yes NS/LR Started: Yes Septic Shock Septic Shock Present: No Miscellaneous Documentation Attending Case Discussed With: EDGARDO KO MD Primary Care Physician: CELE BARRAGAN MD Patient sees these Specialists Cardiology Level of Patient Care: Telemetry EDGARDO KO MD 01/21/17 1711: Attending MD Review Statement Attending Statement Attending MD Statement: examined this patient, discuss w/resident/PA/SKEIN YARN DYER HELPER, agreed w/resident/PA/SKEIN YARN DYER HELPER, reviewed EMR data (avail), discussed with nursing, reviewed images, amended to note Attending Assessment/Plan: 71 y/o F with past medical history significant for A. fib, hypertension, depression, question COPD and peripheral vascular disease who presented with shortness of breath and dyspnea on exertion. She has been feeling sick from last 3 or 4 days. She is coughing but unable to bring much sputum. She was feeling very short of breath and wheezy and was using NyQuil but symptoms did not improve. She denies any fevers and chills. She also claims that she has some chronic swelling on her lower extremities. She denies any pain in the lower extremities. She denies any chest pain, abdominal pain, nausea or vomiting. She did complain of diarrhea few times. Vital Signs Date Time Temp Pulse Resp B/P Pulse O2 O2 Flow FiO2 Ox Delivery Rate 01/21 1616 98.8 112 25 128/59 95 Nasal 3.0L Cannula 01/21 1554 93 Nasal 3.5L Cannula 01/21 1437 100.4 116 22 117/52 94 Nasal 3.0L Cannula 01/21 1334 105 26 142/60 98 Aerosol 6.0L Mask 01/21 1323 93 Nasal 3.0L Cannula 01/21 1310 99.8 131 22 151/67 01/21 1247 96 Nasal 3.0L Cannula 01/21 1234 99.8 131 22 151/67 95 Nasal 3.0L Cannula on exam; aox3, nad. coughing. cv; s1,s2, irregular. resp; + wheezing and junky breath sounds overall. abd; soft, nt, obese, bs+ ext; 1+ edema. skin; + erythema on rle. Laboratory Tests 01/21 01/21 1543 1317 Chemistry Sodium (137 - 145 mmol/L) 131 L Potassium (3.5 - 5.1 mmol/L) 4.3 Chloride (98 - 107 mmol/L) 94 L Carbon Dioxide (22 - 30 mmol/L) 30 Anion Gap (5 - 16) 7 BUN (7 - 17 mg/dL) 15 Creatinine (0.5 - 1.0 mg/dL) 0.5 Estimated GFR (>60 ml/min) > 60 BUN/Creatinine Ratio (7 - 25 %) 30.0 H Glucose (65 - 99 mg/dL) 248 H Lactic Acid (0.7 - 2.1 mmol/L) 2.5 H 1.9 Calcium (8.4 - 10.2 mg/dL) 8.6 Total Bilirubin (0.2 - 1.3 mg/dL) 0.9 AST (14 - 36 U/L) 59 H ALT (9 - 52 U/L) 91 H Alkaline Phosphatase (<127 U/L) 99 Troponin I (< 0.11 ng/ml) < 0.01 Few-Q-Scozqrmfbcb Pept (<125 pg/mL) 442 H Total Protein (6.3 - 8.2 g/dL) 6.4 Albumin (3.5 - 5.0 g/dL) 3.4 L Globulin (1.9 - 4.2 gm/dL) 3.0 Albumin/Globulin Ratio (1.1 - 2.2 %) 1.1 Coagulation PT (9.4 - 12.5 SEC) 12.1 INR (0.90 - 1.19) 1.15 APTT (25 - 37 SEC) 27 Hematology CBC w Diff NO MAN DIFF REQ WBC (4.8 - 10.8 /CUMM) 7.2 RBC (4.20 - 5.40 /CUMM) 4.95 Hgb (12.0 - 16.0 G/DL) 14.7 Hct (37 - 47 %) 44.2 MCV (81.0 - 99.0 FL) 89.4 MCH (27.0 - 31.0 PG) 29.7 RDW (11.5 - 14.5 %) 12.9 Plt Count (130 - 400 /CUMM) 184 MPV (7.4 - 10.4 FL) 9.5 Gran % (42.2 - 75.2 %) 74.9 Lymphocytes % (20.5 - 51.1 %) 15.8 L Monocytes % (1.7 - 9.3 %) 8.1 Eosinophils % (0 - 5 %) 0.7 Basophils % (0.0 - 2.0 %) 0.5 Absolute Granulocytes (1.4 - 6.5 /CUMM) 5.4 Absolute Lymphocytes (1.2 - 3.4 /CUMM) 1.1 L Absolute Monocytes (0.10 - 0.60 /CUMM) 0.6 Absolute Eosinophils (0.0 - 0.7 /CUMM) 0.1 Absolute Basophils (0.0 - 0.2 /CUMM) 0 PUBS MCHC (33.0 - 37.0 G/DL) 33.2 EKG>>> + afib. CT chest: IMPRESSION: There is some cardiomegaly. There is no edema. There is a small area of tree-in-bud opacity in the apical posterior left upper lobe which may represent a small area of pneumonia. There is thickening of some of the small airways perhaps related to reactive airways disease or chronic inflammation. There are several nodules present. The largest has a mean diameter of 0.4 cm A/P: 71 y/o F with past medical history significant for A. fib, hypertension, depression, question COPD and peripheral vascular disease admitted with acute respiratory failure, pneumonia, possible cellulitis and need to rule out DVT patient also has mild COPD exacerbation and bronchitis. Paient remains tachycardic with rapid afib. Patient will be admitted to [facility]. She will be treated with IV antibiotics. Please obtain a right lower extremity Doppler ultrasound to rule out DVT. Sputum culture and blood cultures should be obtained. Patient should be getting IV steroids, TRC nebs. Please follow up on sputum cultures and adjust antibiotics. Patient did complain of diarrhea. Please check stool for C. difficile. Please Continue her aspirin, beta eder and Effexor. Please consult patient's door cutter and check why she's not on full doseanticoagulation as her cgzfa0uhys score is 3 which puts her at high risk category. Shebis also Tachycardic. Patient does have a rise in her lactate levels. Will gently hydrate her and repeat her lactate level in the evening. DVT prophylaxis: hep sq. full code. TAMMY MADISON MD 01/21/17 5300: General Information and HPI Allergies/Medications Home Med list Aspirin (Aspirin*) 325 MG TABLET 1 TAB PO DAILY A FIB (Reported) Metoprolol Succinate 100 MG TAB.ER.24H 1 TAB PO DAILY HEART (Reported) Venlafaxine HCl (Venlafaxine HCl ER) 75 MG CAP.ER.24H 1 CAP PO DAILY MENTAL HEALTH (Reported) Resident Review Statement Resident Statement: examined this patient, discussed with restaurant management internship Other Findings: This is a 71-year-old lady with a history of atrial fibrillation on aspirin, depression, recurrent cellulitis to presents to the emergency room with a chief complaint of fever and cough over the course of last 4-5 days. She had some tactile fevers and dry cough as she is unable to expectorate. States she has no sick contacts or recent travels. This was accompanied by dyspnea and subsequently she came to the emergency room. Former smoker quit smoking 4 years ago. Denies chest pain or shortness of breath. She has had some decreased by mouth intake over the course of last 4-5 days also. Also admits to some watery diarrhea no recent antibiotic use over the same time. Physical exam- She is awake and alert to time place and person Cardiovascular exam is benign, normal S1 and S2, no murmurs Abdominal exam is benign, normal bowel sounds, no tenderness, no masses Neuro exam is intact Lung exam - Significant for rales rhonchi and wheezing on lung exam; right lower extremity hot and red, no purulence Significant labs- CBC is within normal limits, BMP significant for sodium of 131 , lactic acid 2.5 CAT scan shows a small area of tree-in-bud opacity in the posterior left upper lobe, lung nodule Assessment- 1. Community-acquired pneumonia versus bronchitis 2. Acute hypoxic respiratory failure secondary to the pneumonia, oxygen saturation 85% on room air upon arriving to the emergency room 3. Sepsis (fevers, tachypnea, tachycardia) with lactic acidosis again secondary to the pneumonia and also cellulitis 4. Right lower extremity cellulitis 5. Diarrhea, acute infectious vs non-infectious 6. Chronic atrial fibrillation; CHADSVASC > 2 but only on ASA 325 mg daily ? 7. Depression 8. Hyponatremia of 131, likely secondary to, decreased by mouth intake versus Legionella PNA 9. Lung nodule 10. 30+ pack yr hx of smoking, quit 4 yrs ago Plan- GEN med admit Vitals per protocol Panculture-2 sets of blood cultures, strep and Legionella urinary antigens, stool studies, flu swab, send out C. difficile IV fluids 100 mL times one bag of normal saline Ceftriaxone and azithromycin IV steroids TRC nebs Repeat lactic acid Continue full dose aspirin and metoprolol, venlafaxine Obtain lower extremity Doppler ultrasound Get records from her door cutter Pain pathway Heart healthy diet Subcutaneous heparin for DVT prophylaxis Full code Update 6 PM- While in the emergency room upon arrival patient had received 10 of IV Cardizem as she has a history of chronic A. fib and her rate was in the 130s, her rate subsequently improved at the time of testing the patient. I recently got a call from the ER nursing shipping track supervisor Abraham, who states that the patient is now again in rapid atrial fibrillation. At this point we will change her disposition from general med to telemetry, give her IV Lopressor for better rate control, trend troponins and EKGs, obtain a cardiology consult.
[2017-01-21] MEDS ORDERED: ASPIRIN325 M2 PO (17:20)
--- NOTE | 2017-01-21 18:18 | NUR ---
PT GIVEN LOPRESSOR WITH MINIMAL CHANGE IN HR--TRENDING GENERALLY IN 100S INSTEADY OF 110S, CONTS TO VARY BETWEEN 80 AND 140. PT UP TO COMMODE, DEMANDING TO TAKE OFF 02 AND WALK DOWN THE SNOW TO BATHROOM, THEN C/O FEELING WEAK WHEN STANDING TO GET OFF STRETCHER. PT REPORTED DIARRHEA, SET UP FOR STOOL SAMPLE, FORMED STOOL NOTED--UNABLE TO SEND CDIFF/CULTURE SAMPLE OF FORMED STOOL. URINE TRIO AND EXTRA CLEAR TUBE SENT, FLU SWAB SENT. SPUTUM CUP GIVE TO PT WHO CONTS WITH PRODUCTIVE COUGH, PT SPITTING INTO TISSUES BUT STATING "I CAN'T GIVE THE SAMPLE, IT'S TOO DRY, NOTHING WILL COME UP."
--- NOTE | 2017-01-21 18:31 | NUR ---
PT REPEATEDLY REMOVED 02 TUBING, PULLING ON IV TUBING AND REMOVING TELE LEADS. PT STATING SHE DOES NOT LIKE BEING ATTACHED TO TUBES AND WANTS TO GO HOME, DEMANDING TO KNOW EXACT TIME SHE WILL BE DISCHARGED "TOMORROW" AND YELLING OUT REPEATEDLY DESPITE HAVING CALL BUTTON IN HAND. PT HAS BEEN ADVISED BY YAHAIRA TONG, DR BILLINGS AND HOUSE STAFF THAT SHE MAY LEAVE AMA AND HAS THUS FAR DECLINED TO DO THAT TONIGHT.
--- NOTE | 2017-01-21 18:47 | NUR ---
MOD NOTIFIED THAT PT IS REFUSING DOPPLER STATING "I'M UNCOMFORTABLE." PT UNABLE TO STATE WHY SHE FEELS UNCOMFORTABLE.
--- NOTE | 2017-01-21 19:01 | NUR ---
PT TALKED TO MOD, AGREED TO US THEN REFUSED WHEN US TECH RETURNED LESS THAN 5 MIN LATER. ATTEMPTED TO DO PORTABLE US, PT HAD PANIC ATTACK WHEN REMOVING PANTS FOR US, REFUSING T0 SIT BACK ON STRETCHER, LIFTED BACK ONTO STRETCHER BY 2 STAFF, STATING SHE IS "UNCOMFORTABLE" AND CANNOT BREATHE, VSS, STATING THE MEDICATION IS MAKING HER FEEL SICK. MOD PAGED, PT MEDICATED WITH ATIVAN WITH SOME IMMEDIATE EFFECT. PORTABLE US IN PROGRESS.
--- NOTE | 2017-01-21 19:04 | NUR ---
[facility] assignment [id number]
--- NOTE | 2017-01-21 19:10 | NUR ---
ATIVAN EFFECTIVE, PT NOW ENGAGED IN DETAILED CASUAL CONVERSATION WITH [employer] WITH NO REPORTS OF SOB.
--- NOTE | 2017-01-21 19:37 | NUR ---
MOD AWARE OF HR, NNO AT THIS TIME, WILL RECIEVE PO LOPRESSOR TONIGHT.
--- NOTE | 2017-01-21 19:37 | NUR ---
REPEAT LABS SENT, EKG IN PROGRESS.
--- NOTE | 2017-01-21 22:16 | ULTRASOUND REPORT ---
EXAMINATION: US TRIPLEX LOWER EXTREMITY, BILATERAL CLINICAL INFORMATION: Bilateral lower extremity swelling and skin changes. COMPARISON: Ultrasound of the left lower extremity veins 03/19/2015. TECHNIQUE: Color-flow triplex imaging with spectral analysis and compression Doppler were performed on the bilateral lower extremities. FINDINGS: Evaluation of the bilateral lower extremity veins demonstrates occlusive thrombus within the left calf veins, specifically within the left posterior and left anterior tibial veins. The remaining imaged veins of the bilateral lower extremities are patent. Specifically, respiratory variation, normal compression and augmented flow are noted throughout the remaining bilateral lower extremities. The visualized bilateral common femoral, bilateral femoral, bilateral profunda femoral, bilateral popliteal and midcalf peroneal as well as the right posterior tibial venous segments demonstrate no evidence of deep venous thrombosis. There are no Steele's cysts. IMPRESSION: Occlusive thrombus within the left posterior and left anterior tibial veins. The remaining veins of the bilateral lower extremities are patent, without evidence of deep venous thrombosis. This critical result was discussed with Dr. Humphries at 10:12 PM on 01/21/2017 and it was ascertained that the content and urgency of the report was understood at the time of direct communication.
--- NOTE | 2017-01-21 23:15 | Event Note ---
Event Note Event Note: Situation: Received a call from [place] informing us about Occlusive thrombus within the left posterior and left anterior tibial veins. Brief Assesment: Informed the patient about the results and asked her if she had any contraindication to anticougulation such as GI bleed, or intracranial bleed. Pt denied any contraindication. Stool guaic was obtained and was mildly positive. H/H was stable, therefore pt was started on Heparin Drip for DVT.
[2017-01-21 23:28] VITALS: BP 158/90
--- NOTE | 2017-01-22 01:47 | NUR ---
GUIAC PERFORMED BY DR. GAUDENCIO PEREZ PRIOR TO STARTING HEPARIN GTT. GUIAC WAS POSITIVE.
--- NOTE | 2017-01-22 07:09 | PN- Housestaff ---
EMPERATRIZ FRIEDMAN 01/22/17 0707: Subjective Follow-up For: #1 community-acquired pneumonia #2 atrial fibrillation with rapid ventricular response Complaints: no complaints Tele-Events Since Last Visit: A flutter, heart rate 110-122, but with PVCs were found. Subjective: The patient was comfortable this morning. Complained of shortness of breath, improved compared to yesterday. Did not have any chest pain or palpitations. Discussed with Damien June MD, and reviewed records from primary care physician. It wasn't clear if the patient had in normal sinus rhythm. Review of Systems Constitutional: Reports: see HPI. Objective Last 24 Hrs of Vital Signs/I&O Vital Signs Date Time Temp Pulse Resp B/P Pulse O2 O2 Flow FiO2 Ox Delivery Rate 01/22 2328 98.0 124 22 158/90 92 Nasal Cannula 01/21 2314 116 158/90 01/21 2104 Nasal 4.0L Cannula 01/21 193 97.4 123 22 154/64 94 Nasal 3.0L Cannula 01/21 1930 Nasal Cannula 01/21 1830 98.5 106 22 146/76 93 Nasal 3.0L Cannula 01/21 1809 98.5 126 22 139/85 01/21 1759 98.5 126 22 139/85 94 Nasal 3.0L Cannula 01/21 1616 98.8 112 25 128/59 95 Nasal 3.0L Cannula 01/21 1554 93 Nasal 3.5L Cannula 01/21 1437 100.4 116 22 117/52 94 Nasal 3.0L Cannula 01/21 1334 105 26 142/60 98 Aerosol 6.0L Mask 01/21 1323 93 Nasal 3.0L Cannula 01/21 1310 99.8 131 22 151/67 01/21 1247 96 Nasal 3.0L Cannula 01/21 1234 99.8 131 22 151/67 95 Nasal 3.0L Cannula Intake & Output 01/22 0800 01/22 0000 01/21 1600 Intake Total 160 3880 Output Total 202 Balance 160 3678 Intake, IV 160 3400 Intake, Oral 480 Number 1 Bowel Movements Output, Other 2 Output, Urine 200 Patient 247 lb 240 lb 240 lb Weight Physical Exam General Appearance: No Acute Distress Other Physical Findings: General Exam: AAOx3, No acute distress, Skin: No rashes, no breakdown HEENT: PERRLA, EOMI Neck: Supple, No JVD No cervical lymphadenopathy CVS: Reg Rate, Normal S1,S2, No MGR Resp: No entry bilaterally, rhonchi bilateral. Abdomen: Soft, No tenderness, Normal Bowel Sounds Neuro: Normal Speech, Strength 5/5 b/l x 4 extremities, Sensation intact, CN III -XII NL, Reflexes 2+ Extremities: No cyanosis, pedal edema 2+. Current Medications: Current Medications Sig/Harmony Start time Last Medication Dose Route Stop Time Status Admin Acetaminophen 650 MG Q6P PRN 01/21 1730 AC PO Acetaminophen/ 1 TAB Q6P PRN 01/21 1730 DC Hydrocodone Bitart PO Acetaminophen/ 1 TAB Q6P PRN 01/21 1730 AC Hydrocodone Bitart PO Albuterol Sulfate 3 ML EVERY 4 HRS/AWAKE 01/22 0800 AC 01/21 INH 2040 Albuterol Sulfate 3 ML ONCE ONE 01/21 1600 DC 01/21 INH 01/21 1601 1551 Albuterol Sulfate 3 ML ONCE ONE 01/21 1315 DC 01/21 INH 01/21 1316 1323 Aspirin 325 MG DAILY 01/22 1000 DC PO Aspirin 325 MG DAILY 01/22 1000 AC PO Azithromycin 500 MG DAILY 01/22 1000 DC Sodium Chloride 250 ML IV Azithromycin 500 MG DAILY 01/22 1000 AC Sodium Chloride 250 ML IV Azithromycin 500 MG ONCE ONE 01/21 1530 DC 01/21 Sodium Chloride 250 ML IV 01/21 1629 1546 Ceftriaxone Sodium 1,000 MG DAILY 01/22 1000 DC IV Ceftriaxone Sodium 1,000 MG DAILY 01/22 1000 AC IV Ceftriaxone Sodium 0 .STK-MED ONE 01/21 1803 DC .ROUTE Ceftriaxone Sodium 1,000 MG ONCE ONE 01/21 1715 DC IV 01/21 1716 Ceftriaxone Sodium 1,000 MG ONCE ONE 01/21 1715 DC 01/21 IV 01/21 1716 1803 Diltiazem HCl 10 MG ONCE ONE 01/21 1315 DC 01/21 IV 01/21 1316 1310 Diltiazem HCl 0 .STK-MED ONE 01/21 1307 DC .ROUTE Heparin Sodium 5,000 UNIT Q8 01/21 2200 DC (Porcine) SC Heparin Sodium 5,000 UNIT Q8 01/21 2200 DC (Porcine) SC Heparin Sodium/ 25,000 UNIT Q24H 01/21 2315 AC 01/22 Dextrose IV 0124 Dextrose/Water 500 ML Ipratropium [place] 2.5 ML EVERY 4 HRS/AWAKE 01/22 0800 AC 01/21 INH 2040 Ipratropium [place] 2.5 ML ONCE ONE 01/21 1315 DC 01/21 INH 01/21 1316 1323 Lorazepam 0.5 MG ONCE ONE 01/22 0245 DC 01/22 PO 01/22 0246 0236 Lorazepam 0 .STK-MED ONE 01/21 1901 DC .ROUTE Lorazepam 1 MG ONCE ONE 01/21 1900 DC 01/21 IV 01/21 1901 1901 Methylprednisolone 40 MG Q12 01/21 2200 AC 01/21 IV 2313 Metoprolol Succinate 100 MG DAILY 01/22 1000 DC PO Metoprolol Succinate 100 MG DAILY 01/22 1000 AC PO Metoprolol Tartrate 25 MG ONCE ONE 01/21 2100 DC 01/21 PO 01/21 2101 2314 Metoprolol Tartrate 0 .STK-MED ONE 01/21 1807 DC IV Metoprolol Tartrate 5 MG ONCE ONE 01/21 1800 DC 01/21 IV 01/21 1801 1809 Oxycodone/ 2 TAB Q6P PRN 01/21 1730 DC Acetaminophen PO Oxycodone/ 2 TAB Q6P PRN 01/21 1730 AC Acetaminophen PO Sodium Chloride 1,000 ML BOLUS ONE 01/21 1800 DC 01/21 IV 01/21 1859 1809 Sodium Chloride 1,000 ML BOLUS ONE 01/21 1800 DC IV 01/21 1959 Sodium Chloride 1,000 ML BOLUS ONE 01/21 1800 DC 01/21 IV 01/21 1959 1936 Sodium Chloride 1,000 ML ONCE ONE 01/21 1730 DC IV 01/22 0129 Sodium Chloride 1,000 ML BOLUS ONE 01/21 1615 DC 01/21 IV 01/21 1714 1621 Venlafaxine HCl 75 MG DAILY 01/22 1000 DC PO Venlafaxine HCl 75 MG DAILY 01/22 1000 AC PO Last 24 Hrs of Lab/Parrish Results Last 24 Hrs of Labs/Mics: Laboratory Tests 01/22/17 0110: Troponin I 0.02 01/21/17 1935: Lactic Acid 1.8, Troponin I 0.02 01/21/17 1756: Urine Color YEL, Urine Clarity HAZY H, Urine pH 6.0, Ur Specific [place] >= 1.030, Urine Protein 100 H, Urine Ketones NEG, Urine Nitrite NEG, Urine Bilirubin NEG, Urine Urobilinogen 0.2, Ur Leukocyte Esterase NEG, Ur Microscopic SEDIMENT EXAMINED, Urine RBC 1-3, Urine WBC 1-3 H, Ur Epithelial Cells MANY H, Urine Mucus FEW, Urine Hemoglobin TRACE-INTACT, Urine Glucose 250 H 01/21/17 1543: Lactic Acid 2.5 H 01/21/17 1317: Anion Gap 7, Estimated GFR > 60, BUN/Creatinine Ratio 30.0 H, Glucose 248 H, Lactic Acid 1.9, Calcium 8.6, Total Bilirubin 0.9, AST 59 H, ALT 91 H, Alkaline Phosphatase 99, Troponin I < 0.01, Hpf-M-Rhjobypdjjv Pept 442 H, Total Protein 6.4, Albumin 3.4 L, Globulin 3.0, Albumin/Globulin Ratio 1.1, PT 12.1, INR 1.15, APTT 27, CBC w Diff NO MAN DIFF REQ, RBC 4.95, MCV 89.4, MCH 29.7, RDW 12.9, MPV 9.5, Gran % 74.9, Lymphocytes % 15.8 L, Monocytes % 8.1, Eosinophils % 0.7, Basophils % 0.5, Absolute Granulocytes 5.4, Absolute Lymphocytes 1.1 L, Absolute Monocytes 0.6, Absolute Eosinophils 0.1, Absolute Basophils 0, PUBS MCHC 33.2 Microbiology 01/21 1757 URINE ROUT: Legionella Antigen - RES 01/21 1757 URINE ROUT: Streptococcus pneumoniae Antigen (M - RES 01/21 1757 URINE ROUT: Urine Culture - RES 01/22 1756 NASOPHARYN: Influenza Virus A & B Rapid Smear - COMP 01/21 1721 LOWER RESP: Respiratory Culture - COLB 01/21 172 LOWER RESP: Gram Stain - COLB 01/21 170 STOOL: Clostridium difficile Toxin A & B - COLB 01/21 170 STOOL: Stool Culture - COLB 01/21 1543 BLOOD: Blood Culture - RECD 01/21 1230 BLOOD: Blood Culture - RECD Assessment/Plan Assessment: Ms Murphy is a 71-year-old woman with a past history of atrial fibrillation, mental health issues is being evaluated for cough, fever, shortness of breath 4.-5 days. At the time of admission, temperature 99.8, pulse rate 131, respiration 22, blood pressure 151/67, pulse ox-95% on 3 L. W BC 10.1, hemoglobin 8.9 (baseline 9.7), sodium 131, sodium 4.3, AST 59, ALT 91, alkaline phosphatase 99, proBNP slightly elevated 442, urinalysis revealed elevated protein, negative urine leukocyte esterase, negative nitrate. Radiological findings-revealed chest x-ray-focal area of consolidation in the right lung base. This was confirmed by a CAT scan chest which revealed small area of tree-in-bud opacity in apical posterior left upper lobe. Several small nodules were noted. Lower extremity ultrasound Doppler revealed occlusive thrombus within the left posterior and left anterior tibial veins.. CTA chest revealed no evidence of pulmonary embolism. No focal area of consolidation was found, however small apical posterior left upper lobe tree-in- bud appearance was found. Legionella, strep pneumo urinary antigen negative. Negative for rapid viral influenza A, B. Lower respiratory cultures 3 have been canceled so far. Reordered this a.m. Below is the problem list and plan: #1 cough, shortness of breath-likely due to acute exacerbation of COPD and pneumonia. Currently on ceftriaxone and azithromycin. No leukocytosis. Has been afebrile in the last 24 hours. Await results from or respiratory cultures. PE was in the differential, which was ruled out by CTA. No evidence of heart failure. Continue Solu-Medrol IV 40 mg twice a day. Change to by mouth daily in the morning. Titrate oxygen down as tolerated. TRC and nebs. #2 atrial fibrillation-after reviewing the records of the primary care physician , and discussion with Damien June MD it was ascertained that the patient might have had atrial fibrillation for a long time. There was no definitive way of finding out unless EKG was checked in the last 1-2 years. Since the patient had deep venous thrombosis, it is prudent to anticoagulate the patient regardless with venous thrombosis dose-apixaban 10 mg twice a day for 10 days followed by 5 mg by mouth twice a day. The dose of beta eder has been increased to 150 mg by mouth daily. If needed may have to start digoxin in the a.m., if heart rate is inadequately controlled. #3 DVT-venous thromboembolism. Continue apixaban and discontinue IV heparin. There is a component of superficial thrombophlebitis, and Motrin and warm compress for symptomatic relief. #4 DVT prophylaxis-apixaban. Problem List: 1. Pneumonia Pain Ratin Pain Location: BACK Pain Goal: Pain 4 or less Pain Plan: Tylenol when necessary Tomorrow's Labs & Rationales: CBC-to check for leukocytosis BEP to check for normal kidney function. BERKLEY KAUR MD 01/22/17 1047: Attending MD Review Statement Attending Statement Attending MD Statement: examined this patient, discuss w/resident/PA/ACT ENGLISH TUTOR, agreed w/resident/PA/ACT ENGLISH TUTOR, reviewed EMR data (avail) Attending Assessment/Plan: 71F PMH atrial fibrillation on ASA, peripheral vascular disease, bronchitis/COPD , anxiety and depression, recurrent LE cellulitis admitted for severe dyspnea, wheezing, fever, chills, malaise, and RLE pain in the setting of pneumonia with acute respiratory failure, found to be in rapid atrial fibrillation, with LLE superficial thrombophlebitis found on LE doppler. Today patient reports her breathing is much better, though still not at baseline. She wishes to go home, but understands she still needs treatment. Denies leg pain. On 3L NC, still rapid atrial fibrillation 120's. Labs reviewed. 1. Left upper lobe pneumonia 2. Sepsis 3. Acute hypoxemic respiratory failure 4. Rapid atrial fibrillation 5. LLE superficial thrombophlebitis 6. RLE cellulitis 7. PVD 8. Acute exaceration of COPD Plan - Continue on telemetry - Continue Ceftriaxone and Azithromycin - Follow blood and sputum cultures, S.pneumo antigen, and Legionella antigen - Continue Solumedrol 40mg q12h, if improved can switch to Prednisone tomorrow - Continue Metoprolol for rate control, if tachycardia persists will consider Cardizem drip - Cardiology consult - Follow up echocardiogram - Will continue heparin drip for now, obtain records to see why patient was not on chronic anti-coagulation for a-fib for now. If not indicated for a-fib, will stop, as it is not necessary for superficial thrombophlebitis - Warm compresses and NSAIDs of LLE - Leg elevation - Continue breathing treatments - Continue home medications - DVT PPx
[2017-01-22 08:02] LABS: ABSOLUTE BASOPHIL COUNT 0 /CUMM (0.0-0.2); ABSOLUTE EOSINOPHIL COUNT 0 /CUMM (0.0-0.7); ABSOLUTE GRANULOCYTE CT 6.1 /CUMM (1.4-6.5); ABSOLUTE LYMPH COUNT 1.2 /CUMM (1.2-3.4); ABSOLUTE MONOCYTE COUNT 0.2 /CUMM (0.10-0.60); BASOPHIL % 0.3 % (0.0-2.0); EOSINOPHIL % 0.1 % (0-5); GRANULOCYTE % 81.2 % (42.2-75.2); HEMATOCRIT 44.5 % (37-47); MEAN CORPUSCULAR HGB 29.9 PG (27.0-31.0); MEAN CORPUSCULAR HGB CONC 33.1 G/DL (33.0-37.0); MEAN CORPUSCULAR VOLUME 90.4 FL (81.0-99.0); MEAN PLATELET VOLUME 10.7 FL (7.4-10.4); PLATELET COUNT 160 /CUMM (130-400); RBC DISTRIBUTION WIDTH 13.3 % (11.5-14.5); RED BLOOD CELL CT 4.92 /CUMM (4.20-5.40); WHITE BLOOD CELL COUNT 7.5 /CUMM (4.8-10.8)
[2017-01-22 08:10] VITALS: BP 138/86
[2017-01-22 08:17] LABS: PTT 50 SEC (25-37)
--- NOTE | 2017-01-22 11:36 | Cons- Cardiology ---
General Information and HPI Consulting Request Date of Consult: 01/22/17 Requested By: EDGARDO KO MD Reason for Consult: Rapid atrial fibrillation Source of Information: patient, old records History of Present Illness: This is a 71-year-old female with a past medical history of recurrent bronchitis , lower extremity cellulitis, likely a component of lymphedema, obesity, hypertension, diabetes mellitus and atrial fibrillation for which she is not on chronic anticoagulation who presents to [facility] with chief complaint of approximately 3 days of minimally productive cough associated with increased shortness of breath. This was not associated with any obvious chest pain or palpitations. Denies any bleeding, vomiting, nausea, diaphoresis, headache, focal weakness, or slurred speech. She does have some swelling in her lower extremities which she says is intermittent and chronic. Denies associated the orthopnea, paroxysmal nocturnal dyspnea, or pleuritic chest pain. 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 Allergies/Medications Allergies: Coded Allergies: Penicillins (Severe, HYPOTENSION 01/21/17) clindamycin (Severe, RASH, HIVES 01/21/17) Home Med List: Aspirin (Aspirin*) 325 MG TABLET 1 TAB PO DAILY A FIB (Reported) Metoprolol Succinate 100 MG TAB.ER.24H 1 TAB PO DAILY HEART (Reported) Venlafaxine HCl (Venlafaxine HCl ER) 75 MG CAP.ER.24H 1 CAP PO DAILY MENTAL HEALTH (Reported) Current Medications: Current Medications Sig/Harmony Start time Last Medication Dose Route Stop Time Status Admin Acetaminophen 650 MG Q6P PRN 01/21 1730 AC PO Acetaminophen/ 1 TAB Q6P PRN 01/21 1730 DC Hydrocodone Bitart PO Acetaminophen/ 1 TAB Q6P PRN 01/21 1730 AC Hydrocodone Bitart PO Albuterol Sulfate 3 ML EVERY 4 HRS/AWAKE 01/22 0800 AC 01/22 INH 0746 Albuterol Sulfate 3 ML ONCE ONE 01/21 1600 DC 01/21 INH 01/21 1601 1551 Albuterol Sulfate 3 ML ONCE ONE 01/21 1315 DC 01/21 INH 01/21 1316 1323 Aspirin 325 MG DAILY 01/22 1000 DC PO Aspirin 325 MG DAILY 01/22 1000 AC 01/22 PO 0853 Azithromycin 500 MG DAILY 01/22 1000 DC Sodium Chloride 250 ML IV Azithromycin 500 MG DAILY 01/22 1000 AC 01/22 Sodium Chloride 250 ML IV 0854 Azithromycin 500 MG ONCE ONE 01/21 1530 DC 01/21 Sodium Chloride 250 ML IV 01/21 1629 1546 Ceftriaxone Sodium 1,000 MG DAILY 01/22 1000 DC IV Ceftriaxone Sodium 1,000 MG DAILY 01/22 1000 AC 01/22 IV 0853 Ceftriaxone Sodium 0 .STK-MED ONE 01/21 1803 DC .ROUTE Ceftriaxone Sodium 1,000 MG ONCE ONE 01/21 1715 DC IV 01/21 1716 Ceftriaxone Sodium 1,000 MG ONCE ONE 01/21 1715 DC 01/21 IV 01/21 1716 1803 Diltiazem HCl 10 MG ONCE ONE 01/21 1315 DC 01/21 IV 01/21 1316 1310 Diltiazem HCl 0 .STK-MED ONE 01/21 1307 DC .ROUTE Heparin Sodium 5,000 UNIT Q8 01/21 2200 DC (Porcine) SC Heparin Sodium 5,000 UNIT Q8 01/21 2200 DC (Porcine) SC Heparin Sodium/ 25,000 UNIT .STK-MED ONE 01/22 0013 DC Dextrose IV 01/22 0014 Heparin Sodium/ 25,000 UNIT Q24H 01/21 2315 AC 01/22 Dextrose IV 0124 Dextrose/Water 500 ML Ibuprofen 600 MG Q8P PRN 01/22 1015 AC PO Ipratropium [place] 2.5 ML EVERY 4 HRS/AWAKE 01/22 0800 AC 01/22 INH 0746 Ipratropium [place] 2.5 ML ONCE ONE 01/21 1315 DC 01/21 INH 01/21 1316 1323 Lorazepam 0.5 MG ONCE ONE 01/22 0245 DC 01/22 PO 01/22 0246 0236 Lorazepam 0 .STK-MED ONE 01/21 1901 DC .ROUTE Lorazepam 1 MG ONCE ONE 01/21 1900 DC 01/21 IV 01/21 190 1901 Methylprednisolone 40 MG Q12 01/21 2200 AC 01/22 IV 0853 Metoprolol Succinate 150 MG DAILY 01/23 1000 CAN PO Metoprolol Succinate 150 MG DAILY 01/23 1000 AC PO Metoprolol Succinate 50 MG ONCE ONE 01/22 1115 DC PO 01/22 1116 Metoprolol Succinate 100 MG DAILY 01/22 1000 DC PO Metoprolol Succinate 100 MG DAILY 01/22 1000 DC 01/22 PO 0852 Metoprolol Tartrate 25 MG ONCE ONE 01/21 2100 DC 01/21 PO 01/21 2101 2314 Metoprolol Tartrate 0 .STK-MED ONE 01/21 1807 DC IV Metoprolol Tartrate 5 MG ONCE ONE 01/21 1800 DC 01/21 IV 01/21 1801 1809 Oxycodone/ 2 TAB Q6P PRN 01/21 1730 DC Acetaminophen PO Oxycodone/ 2 TAB Q6P PRN 01/21 1730 AC Acetaminophen PO Sodium Chloride 1,000 ML BOLUS ONE 01/21 1800 DC 01/21 IV 01/21 1859 1809 Sodium Chloride 1,000 ML BOLUS ONE 01/21 1800 DC IV 01/21 1959 Sodium Chloride 1,000 ML BOLUS ONE 01/21 1800 DC 01/21 IV 01/21 1959 1936 Sodium Chloride 1,000 ML ONCE ONE 01/21 1730 DC IV 01/22 0129 Sodium Chloride 1,000 ML BOLUS ONE 01/21 1615 DC 01/21 IV 01/21 1714 1621 Venlafaxine HCl 75 MG DAILY 01/22 1000 DC PO Venlafaxine HCl 75 MG DAILY 01/22 1000 AC 01/22 PO 0852 Review of Systems Review of Systems: Review of systems as per HPI. The remainder of a 10 point review of systems was reviewed and was otherwise negative. 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 Home Who Do You Live With? self Services at Home: None Smoking Status: Former Smoker ETOH Use: denies use Illicit Drug Use: denies illicit drug use Employment History Employment: Retired Exam & Diagnostic Data Vital Signs and I&O Vital Signs Date Time Temp Pulse Resp B/P Pulse O2 O2 Flow FiO2 Ox Delivery Rate 01/22 0852 138/84 01/22 0810 97.6 121 20 138/86 92 Nasal 3.0L Cannula 01/22 0750 97 Nasal 3.0L Cannula 01/22 2328 98.0 124 22 158/90 92 Nasal Cannula 01/21 2314 116 158/90 01/21 2104 Nasal 4.0L Cannula 01/21 1939 97.4 123 22 154/64 94 Nasal 3.0L Cannula 01/21 193 Nasal Cannula 01/21 1830 98.5 106 22 146/76 93 Nasal 3.0L Cannula 01/21 1809 98.5 126 22 139/85 01/21 1759 98.5 126 22 139/85 94 Nasal 3.0L Cannula 01/21 1616 98.8 112 25 128/59 95 Nasal 3.0L Cannula 01/21 1554 93 Nasal 3.5L Cannula 01/21 1437 100.4 116 22 117/52 94 Nasal 3.0L Cannula 01/21 1334 105 26 142/60 98 Aerosol 6.0L Mask 01/21 1323 93 Nasal 3.0L Cannula 01/21 1310 99.8 131 22 151/67 01/21 1247 96 Nasal 3.0L Cannula 01/21 1234 99.8 131 22 151/67 95 Nasal 3.0L Cannula Intake & Output 01/22 1600 01/22 0800 01/22 0000 01/21 1600 01/21 0800 01/21 0000 Intake Total 160 3880 Output Total 202 Balance 160 3678 Intake, IV 160 3400 Intake, Oral 480 Number 1 Bowel Movements Output, Other 2 Output, Urine 200 Patient 247 lb 240 lb 240 lb Weight Physical Exam: General: no apparent distress. Alert. On nasal cannula. Obese Eyes: No obvious scleral icterus. HEENT: No jugular venous distention or abnormal jugular venous pulsations. Cardiovascular: Normal intensity S1/S2. Irregular tachycardia. One out of 6 systolic murmur Respiratory: Mildly decreased air entry bilaterally Abdomen: no guarding or rebound tenderness. Musculoskeletal: No clubbing or cyanosis noted, 1+ lower extremity edema Skin: Warm Neurologic: No gross focal deficits noted. Labs/Parrish Results: Laboratory Tests 01/22 01/22 01/22 01/21 0729 0630 0110 1935 Chemistry Sodium (137 - 145 mmol/L) 132 L Potassium (3.5 - 5.1 mmol/L) 5.1 Chloride (98 - 107 mmol/L) 99 Carbon Dioxide (22 - 30 mmol/L) 24 Anion Gap (5 - 16) 9 BUN (7 - 17 mg/dL) 14 Creatinine (0.5 - 1.0 mg/dL) 0.5 Estimated GFR (>60 ml/min) > 60 BUN/Creatinine Ratio (7 - 25 %) 28.0 H Lactic Acid (0.7 - 2.1 mmol/L) 1.8 Troponin I (< 0.11 ng/ml) 0.02 0.02 Coagulation APTT (25 - 37 SEC) 50 H Hematology CBC w Diff NO MAN DIFF REQ WBC (4.8 - 10.8 /CUMM) 7.5 RBC (4.20 - 5.40 /CUMM) 4.92 Hgb (12.0 - 16.0 G/DL) 14.7 Hct (37 - 47 %) 44.5 MCV (81.0 - 99.0 FL) 90.4 MCH (27.0 - 31.0 PG) 29.9 RDW (11.5 - 14.5 %) 13.3 Plt Count (130 - 400 /CUMM) 160 MPV (7.4 - 10.4 FL) 10.7 H Gran % (42.2 - 75.2 %) 81.2 H Lymphocytes % (20.5 - 51.1 %) 15.6 L Monocytes % (1.7 - 9.3 %) 2.8 Eosinophils % (0 - 5 %) 0.1 Basophils % (0.0 - 2.0 %) 0.3 Absolute Granulocytes (1.4 - 6.5 /CUMM) 6.1 Absolute Lymphocytes (1.2 - 3.4 /CUMM) 1.2 Absolute Monocytes (0.10 - 0.60 /CUMM) 0.2 Absolute Eosinophils (0.0 - 0.7 /CUMM) 0 Absolute Basophils (0.0 - 0.2 /CUMM) 0 PUBS MCHC (33.0 - 37.0 G/DL) 33.1 01/21 01/21 1756 1543 Chemistry Lactic Acid (0.7 - 2.1 mmol/L) 2.5 H Urines Urine Color (YEL,AMB,STR) YEL Urine Clarity (CLEAR) HAZY H Urine pH (5.0 - 8.0) 6.0 Ur Specific [place] (1.001 - 1.035) >= 1.030 Urine Protein (NEG,<30 MG/DL) 100 H Urine Ketones (NEG) NEG Urine Nitrite (NEG) NEG Urine Bilirubin (NEG) NEG Urine Urobilinogen (0.1 - 1.0 EU/dl) 0.2 Ur Leukocyte Esterase (NEG) NEG Ur Microscopic SEDIMENT EXAMINED Urine RBC (0 - 5 /HPF) 1-3 Urine WBC (0 - 2 /HPF) 1-3 H Ur Epithelial Cells (NONE,FEW) MANY H Urine Mucus (FEW,NONE) FEW Urine Hemoglobin (NEG) TRACE-INTACT Urine Glucose (N MG/DL) 250 H 01/21 1317 Chemistry Sodium (137 - 145 mmol/L) 131 L Potassium (3.5 - 5.1 mmol/L) 4.3 Chloride (98 - 107 mmol/L) 94 L Carbon Dioxide (22 - 30 mmol/L) 30 Anion Gap (5 - 16) 7 BUN (7 - 17 mg/dL) 15 Creatinine (0.5 - 1.0 mg/dL) 0.5 Estimated GFR (>60 ml/min) > 60 BUN/Creatinine Ratio (7 - 25 %) 30.0 H Glucose (65 - 99 mg/dL) 248 H Lactic Acid (0.7 - 2.1 mmol/L) 1.9 Calcium (8.4 - 10.2 mg/dL) 8.6 Total Bilirubin (0.2 - 1.3 mg/dL) 0.9 AST (14 - 36 U/L) 59 H ALT (9 - 52 U/L) 91 H Alkaline Phosphatase (<127 U/L) 99 Troponin I (< 0.11 ng/ml) < 0.01 [id number] Pept (<125 pg/mL) 442 H Total Protein (6.3 - 8.2 g/dL) 6.4 Albumin (3.5 - 5.0 g/dL) 3.4 L Globulin (1.9 - 4.2 gm/dL) 3.0 Albumin/Globulin Ratio (1.1 - 2.2 %) 1.1 Coagulation PT (9.4 - 12.5 SEC) 12.1 INR (0.90 - 1.19) 1.15 APTT (25 - 37 SEC) 27 Hematology CBC w Diff NO MAN DIFF REQ WBC (4.8 - 10.8 /CUMM) 7.2 RBC (4.20 - 5.40 /CUMM) 4.95 Hgb (12.0 - 16.0 G/DL) 14.7 Hct (37 - 47 %) 44.2 MCV (81.0 - 99.0 FL) 89.4 MCH (27.0 - 31.0 PG) 29.7 RDW (11.5 - 14.5 %) 12.9 Plt Count (130 - 400 /CUMM) 184 MPV (7.4 - 10.4 FL) 9.5 Gran % (42.2 - 75.2 %) 74.9 Lymphocytes % (20.5 - 51.1 %) 15.8 L Monocytes % (1.7 - 9.3 %) 8.1 Eosinophils % (0 - 5 %) 0.7 Basophils % (0.0 - 2.0 %) 0.5 Absolute Granulocytes (1.4 - 6.5 /CUMM) 5.4 Absolute Lymphocytes (1.2 - 3.4 /CUMM) 1.1 L Absolute Monocytes (0.10 - 0.60 /CUMM) 0.6 Absolute Eosinophils (0.0 - 0.7 /CUMM) 0.1 Absolute Basophils (0.0 - 0.2 /CUMM) 0 PUBS MCHC (33.0 - 37.0 G/DL) 33.2 Diagnostic Data EKG Results Twelve-lead ECG tracing shows rapid atrial fibrillation at 117 bpm with an incomplete right bundle-branch block CXR Results Shallow inspiration limits the examination. There may be a focal area of consolidation at the right lung base. When feasible, recommend PA and lateral chest radiograph for further evaluation. Other Results Venous Doppler Occlusive thrombus within the left posterior and left anterior tibial veins. The remaining veins of the bilateral lower extremities are patent, without evidence of deep venous thrombosis. Assessment/Plan Assessment/Plan 1. Respiratory insufficiency with hypoxia 2. Tachycardia 3. History of atrial fibrillation not on outpatient anticoagulation 4. Occlusive thrombus within the left posterior and left anterior tibial veins 5. History of hypertension/diabetes mellitus 6. History of cellulitis likely with a component of lymphedema 7. Possible pneumonia The patient's shortness of breath is possibly due to pneumonia but given the the venous thrombus and tachycardia would recommend obtaining a CT angiogram to exclude acute pulmonary embolism. Echocardiogram has been ordered and is currently pending. As she is hemodynamically stable but persistently tachycardic we will increase her Toprol-XL to 150 mg by mouth daily. Given her elevated CHADS-Vasc score with low HAS-BLED score the patient meets indication for long- term anticoagulation which she agrees to. Given the evidence of venous thrombosis would recommend switching her to Eliquis 10mg PO BID x 7 days followed by 5 mg BID after that. Aspirin can be discontinued. No evidence of acute coronary syndrome or congestive heart failure at this time. The above recommendations were discussed personally with the medical house staff. Marek June MD [facility] Consult Acknowledgment - Thank you for your consult request.
[2017-01-22] MEDS ORDERED: ALPRAZOLAM0.5 M4 PO (14:21)
--- NOTE | 2017-01-22 14:27 | CT SCAN REPORT ---
EXAMINATION: CT ANGIOGRAM OF THE CHEST WITH AND WITHOUT CONTRAST (CT PULMONARY ANGIOGRAM FOR PE) CLINICAL INFORMATION: Reason for Study:
Presumptive Dx: RULE OUT PE
Signs Symptoms: HYPOXIC
COMPARISON: CT chest January 21, 2017 TECHNIQUE: Prior to contrast administration, noncontrast localization images were obtained. Subsequently, multidetector volumetric imaging was performed from the thoracic inlet to below the diaphragms following the administration of 125 mL Optiray 350 intravenous contrast. No contrast reaction reported Sagittal, coronal, and MIP oblique sagittal reformatted images were obtained on the CT workstation, uploaded to PACS, and reviewed. Total exam dose-length product 599.11 mGy-cm FINDINGS: QUALITY OF STUDY/CONTRAST BOLUS: Satisfactory. PULMONARY ARTERIES: No central or segmental pulmonary emboli. THORACIC AORTA: The ascending thoracic aorta measures 3.8 cm. The descending thoracic aorta is ectatic measuring up to 4.4 cm (image 37, series 6). There is insufficient contrast opacification to definitively exclude an aortic dissection. LUNG: The central airways are patent. No focal consolidation. Centrilobular emphysematous changes are again noted, predominantly in the upper lobes. There are several scattered pulmonary nodules again identified (please see chest CT report from January 21, 2017 for detailed description. Tree-in-bud opacities are again seen within the apical posterior left upper lobe. Slight interval increase in patchy opacities at the lung bases posteriorly. PLEURA: No pleural effusion or pneumothorax. MEDIASTINUM: Scattered, nonenlarged mediastinal lymph nodes again noted. Main pulmonary artery is mildly prominent. The left atrium is prominent, unchanged. No pericardial effusion. No evidence of septal bowing or right heart strain. CHEST WALL/AXILLA: No axillary or internal mammary lymphadenopathy. OSSEOUS STRUCTURES: No acute or suspicious osseous abnormality. UPPER ABDOMEN: Unremarkable. No reflux of contrast into the hepatic veins to suggest elevated right heart pressures. IMPRESSION: 1. No evidence of pulmonary embolism. 2. No focal consolidation. Similar tree-in-bud opacities within the apical posterior left upper lobe which may represent a small area of pneumonia. Slight interval increase in patchy opacities at the lung bases which may represent atelectasis or evolving pneumonia. 3. Scattered bilateral pulmonary nodules. These were previously described in detail on the CT chest from January 21, 2017. 4. Ectatic descending thoracic aorta. VTE: negative
[2017-01-22 16:35] VITALS: BP 140/80
--- NOTE | 2017-01-22 21:25 | ECHOCARDIOGRAM REPORT ---
JOCELYN HAYES Age: 71 : 1945 Gender: F Exam Date: 01/22/2017 10:45 Exam Location: [address] Ht (in): 67 Wt (lb): 247 BSA: 2.35 BP: 158 / 90 Ordering Physician: JUANY ALVARADO MD Referring Physician: JUANY ALVARADO MD Technologist: Levi [facility] Room Number: [id number] Indications: AFIB/FLUTTER Rhythm: Technical Quality: Technically difficult study FINDINGS Left Ventricle Normal global left ventricular size, wall thickness, systolic function with no obvious regional wall motion abnormalities. Left ventricular ejection fraction is estimated at > 55 %. Right Ventricle Right ventricle not well visualized, grossly normal. Right Atrium Right atrium not well visualized, grossly normal. Left Atrium Mild left atrial dilatation. Mitral Valve No mitral stenosis. Mitral annular calcification. Trace mitral regurgitation. Aortic Valve Aortic valve not well visualized, grossly normal. Tricuspid Valve Tricuspid valve not well visualized, grossly normal. Trace tricuspid regurgitation. Unable to estimate the right ventricular systolic pressure. Pulmonic Valve Pulmonic valve not well visualized. Pericardium No pericardial effusion. Great Vessels Normal size aortic root. CONCLUSIONS Technically difficult study. Normal global left ventricular size, wall thickness, systolic function with no obvious regional wall motion abnormalities. Left ventricular ejection fraction is estimated at > 55 %. Right ventricle not well visualized, grossly normal. Mild left atrial dilatation. Unable to estimate the right ventricular systolic pressure. Damien June M.D. (Electronically Signed) Final Date: 22 January 2017 21:24 MEASUREMENTS (Male / Female) Normal Values 2D ECHO LV Diastolic Diameter PLAX 3.7 cm 4.2 - 5.9 / 3.9 - 5.3 cm LV Systolic Diameter PLAX 2.1 cm 2.1 - 4.0 cm LV Fractional Shortening PLAX 42.9 % 25 - 46 % LV Ejection Fraction 2D Teich 74.8 % IVS Diastolic Thickness 1.1 cm LVPW Diastolic Thickness 1.1 cm LV Relative Wall Thickness 0.6 RV Internal Dim ED PLAX 3.3 cm 1.9 - 3.8 cm LVOT Diameter 1.7 cm Aortic Root Diameter 2.7 cm LA Systolic Diameter LX 4.2 cm 3.0 - 4.0 / 2.7 - 3.8 cm Ascending Aorta Diameter 3.0 cm DOPPLER AV Peak Velocity 138.5 cm/s AV Peak Gradient 7.7 mmHg AV Mean Velocity 98.3 cm/s AV Mean Gradient 4.5 mmHg AV Velocity Time Integral 25.8 cm LVOT Peak Velocity 71.8 cm/s LVOT Peak Gradient 2.1 mmHg LVOT Mean Velocity 52.5 cm/s LVOT Mean Gradient 1.0 mmHg LVOT Velocity Time Integral 15.8 cm LVOT Stroke Volume 35.9 cm AV Area Cont Eq vti 1.4 cm AV Area Cont Eq pk 1.2 cm MV Peak Velocity 152.0 cm/s MV Peak Gradient 9.2 mmHg MV Mean Velocity 91.9 cm/s MV Mean Gradient 4.0 mmHg Mitral E Point Velocity 137.0 cm/s MV PHT Velocity 156.0 cm/s MV Deceleration [place] 764.0 cm/s MV Pressure Half Time 61.3 ms MV Area PHT 3.6 cm MV Deceleration Time 169.0 ms TR Peak Velocity 277.0 cm/s TR Peak Gradient 30.7 mmHg Right Atrial Pressure 10.0 mmHg Pulmonary Artery Systolic Pressu 40.7 mmHg Right Ventricular Systolic Press 40.7 mmHg PV Peak Velocity 74.4 cm/s PV Peak Gradient 2.2 mmHg PV Mean Velocity 48.9 cm/s PV Mean Gradient 1.0 mmHg PV Velocity Time Integral 11.3 cm LV E' Lateral Velocity 10.0 cm/s Mitral E to LV E' Lateral Ratio 13.7 LV E' Septal Velocity 8.0 cm/s Mitral E to LV E' Septal Ratio 17.1
[2017-01-23 00:40] VITALS: BP 128/78
[2017-01-23 08:08] VITALS: BP 110/80
[2017-01-23 08:28] LABS: ABSOLUTE BASOPHIL COUNT 0 /CUMM (0.0-0.2); ABSOLUTE EOSINOPHIL COUNT 0 /CUMM (0.0-0.7); ABSOLUTE GRANULOCYTE CT 9.8 /CUMM (1.4-6.5); ABSOLUTE LYMPH COUNT 1.5 /CUMM (1.2-3.4); ABSOLUTE MONOCYTE COUNT 0.7 /CUMM (0.10-0.60); BASOPHIL % 0 % (0.0-2.0); EOSINOPHIL % 0 % (0-5); GRANULOCYTE % 81.6 % (42.2-75.2); HEMATOCRIT 43.2 % (37-47); MEAN CORPUSCULAR HGB 29.6 PG (27.0-31.0); MEAN CORPUSCULAR HGB CONC 32.8 G/DL (33.0-37.0); MEAN CORPUSCULAR VOLUME 90.3 FL (81.0-99.0); MEAN PLATELET VOLUME 10.6 FL (7.4-10.4); PLATELET COUNT 185 /CUMM (130-400); RBC DISTRIBUTION WIDTH 13.3 % (11.5-14.5); RED BLOOD CELL CT 4.78 /CUMM (4.20-5.40)
--- NOTE | 2017-01-23 09:04 | PN- Housestaff ---
JOSÉ PLUMMER,LANETTE 01/23/17 0904: Subjective Follow-up For: Community acquired pneumonia Superficial thrombophlebitis New onset atrial fibrillation Complaints: no complaints Tele-Events Since Last Visit: 8. Defibrillation with heart rate between 111-118 Review of Systems Constitutional: Reports: weakness. Cardiovascular: Denies: chest pain, edema, orthopena, palpitations. Respiratory: Reports: short of breath. Denies: cough. Gastrointestinal: Denies: abdominal pain, bloating, constipation. Genitourinary: Denies: no symptoms. Musculoskeletal: Denies: no symptoms. Skin: Reports: erythema. Objective Last 24 Hrs of Vital Signs/I&O Vital Signs Date Time Temp Pulse Resp B/P Pulse O2 O2 Flow FiO2 Ox Delivery Rate 01/23 1625 94 Nasal 4.0L Cannula 01/23 1613 97.7 125 24 158/98 91 Nasal 4.0L Cannula 01/23 0910 120 110/80 01/23 0822 94 Nasal 4.0L Cannula 01/23 0808 97.6 120 16 110/80 94 Nasal 4.0L Cannula 01/23 0800 94 Nasal 4.0L Cannula 01/23 0412 87 Nasal 2.5L Cannula 01/23 0040 98.4 98 22 128/78 90 Nasal 3.0L Cannula 01/23 0000 Nasal 2.0L Cannula 01/22 2020 92 Room Air Room Air 01/22 1739 92 Nasal 3.0L Cannula Intake & Output 01/23 1600 01/23 0800 01/23 0000 Intake Total 975 200 Output Total 775 400 200 Balance 200 -200 -200 Intake, IV 275 Intake, Oral 700 200 Number 0 Bowel Movements Output, Urine 775 400 200 Patient 108.579 kg Weight Physical Exam General Appearance: Alert, Oriented X3, Cooperative, Mild Distress Skin: bilateral lower leg edema along with the erythema Cardiovascular: tachycardia with irregular heart rate Lungs: occasional wheezing with crackles Abdomen: Soft, No Tenderness Neurological: Normal Speech Extremities: bilateral lower extremity edema and redness Vascular: Normal Pulses, Pulses Symmetrical Current Medications: Current Medications Sig/Harmony Start time Last Medication Dose Route Stop Time Status Admin Acetaminophen 650 MG Q6P PRN 01/21 1730 AC PO Acetaminophen/ 1 TAB Q6P PRN 01/21 1730 AC Hydrocodone Bitart PO Albuterol Sulfate 3 ML EVERY 4 HRS/AWAKE 01/22 0800 AC 01/23 INH 1625 Apixaban 10 MG BID 01/22 1145 AC 01/23 PO 0910 Azithromycin 500 MG DAILY 01/22 1000 AC 01/23 Sodium Chloride 250 ML IV 0910 Ceftriaxone Sodium 1,000 MG DAILY 01/22 1000 AC 01/23 IV 0910 Ibuprofen 600 MG Q8P PRN 01/22 1015 AC 01/22 PO 2201 Insulin Aspart 0 TIDAC 01/24 0800 UNVr SC Ipratropium [place] 2.5 ML EVERY 4 HRS/AWAKE 01/22 0800 AC 01/23 INH 1625 Methylprednisolone 40 MG DAILY 01/24 1000 AC IV Methylprednisolone 40 MG Q12 01/21 2200 DC 01/23 IV 0910 Metoprolol Succinate 150 MG DAILY 01/23 1000 AC 01/23 PO 0910 Oxycodone/ 2 TAB Q6P PRN 01/21 1730 AC Acetaminophen PO Ramelteon 8 MG ONCE ONE 01/22 2100 DC 01/22 PO 01/22 2101 2158 Venlafaxine HCl 75 MG DAILY 01/22 1000 AC 01/23 PO 0909 Last 24 Hrs of Lab/Parrish Results Last 24 Hrs of Labs/Mics: Laboratory Tests 01/23/17 0639: Anion Gap 11, Estimated GFR > 60, BUN/Creatinine Ratio 38.3 H, CBC w Diff NO MAN DIFF REQ, RBC 4.78, MCV 90.3, MCH 29.6, RDW 13.3, MPV 10.6 H, Gran % 81.6 H, Lymphocytes % 12.3 L, Monocytes % 6.1, Eosinophils % 0, Basophils % 0 L, Absolute Granulocytes 9.8 H, Absolute Lymphocytes 1.5, Absolute Monocytes 0.7 H, Absolute Eosinophils 0, Absolute Basophils 0, PUBS MCHC 32.8 L Assessment/Plan Assessment: Ms Murphy is a 71-year-old woman with a past history of atrial fibrillation, mental health issues is being evaluated for cough, fever, shortness of breath 4.-5 days. At the time of admission, temperature 99.8, pulse rate 131, respiration 22, blood pressure 151/67, pulse ox-95% on 3 L. W BC 10.1, hemoglobin 8.9 (baseline 9.7), sodium 131, sodium 4.3, AST 59, ALT 91, alkaline phosphatase 99, proBNP slightly elevated 442, urinalysis revealed elevated protein, negative urine leukocyte esterase, negative nitrate. Radiological findings-revealed chest x-ray-focal area of consolidation in the right lung base. This was confirmed by a CAT scan chest which revealed small area of tree-in-bud opacity in apical posterior left upper lobe. Several small nodules were noted. Lower extremity ultrasound Doppler revealed occlusive thrombus within the left posterior and left anterior tibial veins.. CTA chest revealed no evidence of pulmonary embolism. No focal area of consolidation was found, however small apical posterior left upper lobe tree-in- bud appearance was found. Legionella, strep pneumo urinary antigen negative. Negative for rapid viral influenza A, B. Lower respiratory cultures 3 have been canceled so far. Reordered this a.m. Plan - Acute hypoxemic respiratory failure secondary to community-acquired pneumonia * We will supplement oxygen by nasal cannula to keep SPO2 more than 92% * We will continue injection ceftriaxone and azithromycin. * LRC culture has not been seen * We will continue injection Solu-Medrol IV 40 mg daily. * Patient does not show any signs of wheezing or respiratory distress on rest. * We can change Solu-Medrol to by mouth prednisone * TRC and nebs. Steroid-induced hyperglycemia - * Blood sugar measurment TID HS * NovoLog according to low dose sliding scale Atrial fibrillation, new onset - HR 110 -120 * We will continue tablet Eliquis 10 mg twice a day for 10 days followed by 5 mg by mouth twice a day. * We will continue tablet metoprolol XL 150 mg by mouth daily. * If patient continued to have high heart rate, we can start the digoxin Superficial thrombophlebitis - * Warm compresses and Motrin as needed DVT prophylaxis-apixaban. Diet -heart healthy diet CODE STATUS -full code Problem List: 1. Pneumonia 2. Rapid atrial fibrillation Pain Ratin Pain Location: lower leg Pain Goal: Remain pain free Pain Plan: mild Tomorrow's Labs & Rationales: CBC - to r/o infection as last one showed leucocytosis DVT/Prophylaxis: mechanical, pharmacological ISRRAEL TAVARES 01/23/17 1028: Attending Review Statement Attending Statement Attending MD Statement: examined this patient, discuss w/resident/PA/HEALTH ASSESSMENT AND TREATMENT TEACHER, agreed w/resident/PA/HEALTH ASSESSMENT AND TREATMENT TEACHER, discussed with family, reviewed EMR data (avail), discussed with nursing, discussed with case mgmt, reviewed images Attending Assessment/Plan: 71F PMH atrial fibrillation on ASA, peripheral vascular disease, bronchitis/COPD , anxiety and depression, recurrent LE cellulitis admitted for severe dyspnea, wheezing, fever, chills, malaise, and RLE pain in the setting of pneumonia with acute respiratory failure, found to be in rapid atrial fibrillation, with LLE superficial thrombophlebitis found on LE doppler. Today patient reports her breathing is much better, though still not at baseline. She wishes to go home, but understands she still needs treatment. Denies leg pain. On 3L NC, still rapid atrial fibrillation 120's. Labs reviewed. 1. Left upper lobe pneumonia 2. Sepsis 3. Acute hypoxemic respiratory failure 4. Rapid atrial fibrillation 5. LLE superficial thrombophlebitis 6. RLE cellulitis 7. PVD 8. Acute exaceration of COPD Plan - Continue on telemetry - Continue Ceftriaxone and Azithromycin - Follow blood and sputum cultures, S.pneumo antigen, and Legionella antigen - Continue Solumedrol 40mg daily, if improved can switch to Prednisone tomorrow - Continue Metoprolol for rate control, if tachycardia persists will consider Cardizem drip - Cardiology f/u - echocardiogram EF 55% - eliquis started - Warm compresses and NSAIDs of LLE - Leg elevation - Continue breathing treatments - Continue home medications - DVT PPx
--- NOTE | 2017-01-23 09:14 | Patient Discharge Instructions ---
Discharge Instructions General Discharge Information You were seen/treated for: - pneumonia - blood clot in legs - abnormal heart rhythm(atrial fibriallation) Watch for these problems: - chest pain, shortness of breath - lightheadedness, dizziness. Special Instructions: - Please see your pcp within one week of discharge. - Please follow up with your community health consultant within one week of discharge. Please follow-up with your manager of school/lung Dr. within 1-2 weeks of discharge. Please discuss with him about testing for COPD. - Acute Coronary Syndrome Inclusion Criteria At DC or during hospital stay patient has or had the following: ACS DIAGNOSIS No Discharge Core Measures Meds if any: Prescribed or Continued at Discharge Meds if any: NOT Prescribed or Continued at Discharge Congestive Heart Failure Inclusion Criteria At DC or during hospital stay patient has or had the following: CHF DIAGNOSIS No Discharge Core Measures Meds if any: Prescribed or Continued at Discharge Meds if any: NOT Prescribed or Continued at Discharge Cerebrovascular accident Inclusion Criteria At DC or during hospital stay patient has or had the following: CVA/TIA Diagnosis No Discharge Core Measures Meds if any: Prescribed or Continued at Discharge Meds if any: NOT Prescribed or Continued at Discharge Venous thromboembolism Inclusion Criteria VTE Diagnosis No VTE Type Deep Venous Thrombosis VTE Confirmed by (Test) EXT BILATERAL VENOUS DOPP Discharge Core Measures - Per Current guidelines, there needs to be overlap - treatment for the first 5 days of Warfarin therapy. - If discharged on Warfarin prior to 5 days of - overlap therapy, the patient will need to be - assessed for post discharge needs including - *Post discharge parental anticoagulation - *Warfarin and/or parental anticoagulation education - *Follow up date to check INR post discharge At least 5 days overlap therapy as Inpatient No (apixaban) Meds if any: Prescribed or Continued at Discharge Note: Overlap Therapy is Warfarin and Anticoagulant Meds if any: NOT Prescribed or Continued at Discharge
--- NOTE | 2017-01-23 13:27 | PN- Cardiology ---
Subjective Subjective: The patient continues to complain of shortness of breath. No chest pain. No palpitations. No diaphoresis. No lightheadedness or dizziness. No nausea or vomiting. Objective Vital Signs and I&Os Vital Signs Date Time Temp Pulse Resp B/P Pulse O2 O2 Flow FiO2 Ox Delivery Rate 01/23 0910 120 110/80 01/23 0822 94 Nasal 4.0L Cannula 01/23 0808 97.6 120 16 110/80 94 Nasal 4.0L Cannula 01/23 0800 94 Nasal 4.0L Cannula 01/23 0412 87 Nasal 2.5L Cannula 01/23 0040 98.4 98 22 128/78 90 Nasal 3.0L Cannula 01/23 0000 Nasal 2.0L Cannula 01/22 2020 92 Room Air Room Air 01/22 1739 92 Nasal 3.0L Cannula 01/22 1635 98.3 129 20 140/80 90 Nasal 3.0L Cannula Intake & Output 01/23 1600 01/23 0800 01/23 0000 01/22 1600 01/22 0800 01/22 0000 Intake Total 200 447 108 0073 Output Total 400 200 700 202 Balance -200 -200 0 160 3678 Intake, IV 434 299 9276 Intake, Oral 200 400 480 Number 1 Bowel Movements Output, Other 2 Output, Urine 400 200 700 200 Patient 239 lb 247 lb 240 lb Weight Physical Exam: Gen: NAD HEENT: normal Lungs: Decreased breath sounds, normal resp. effort Heart: Irregularly irregular S1, S2, 1/6 systolic murmur Abdomen: Soft, nontender, no masses Extremities: 1+ edema Neuro: Alert and oriented x 3, cranial nerves intact Current Medications: Current Medications Sig/Harmony Start time Last Medication Dose Route Stop Time Status Admin Acetaminophen 650 MG Q6P PRN 01/21 1730 AC PO Acetaminophen/ 1 TAB Q6P PRN 01/21 1730 AC Hydrocodone Bitart PO Albuterol Sulfate 3 ML EVERY 4 HRS/AWAKE 01/22 0800 AC 01/23 INH 1132 Alprazolam 0.5 MG ONCE ONE 01/22 1430 DC 01/23 PO 01/22 1431 0240 Apixaban 10 MG BID 01/22 1145 AC 01/23 PO 0910 Azithromycin 500 MG DAILY 01/22 1000 AC 01/23 Sodium Chloride 250 ML IV 09 Ceftriaxone Sodium 1,000 MG DAILY 01/22 1000 AC 01/23 IV 0910 Ibuprofen 600 MG Q8P PRN 01/22 1015 AC 01/22 PO 2201 Ipratropium [place] 2.5 ML EVERY 4 HRS/AWAKE 01/22 0800 AC 01/23 INH 1132 Methylprednisolone 40 MG DAILY 01/24 1000 AC IV Methylprednisolone 40 MG Q12 01/21 2200 DC 01/23 IV 0910 Metoprolol Succinate 150 MG DAILY 01/23 1000 AC 01/23 PO 0910 Oxycodone/ 2 TAB Q6P PRN 01/21 1730 AC Acetaminophen PO Ramelteon 8 MG ONCE ONE 01/22 2100 DC 01/22 PO 01/22 2101 2158 Venlafaxine HCl 75 MG DAILY 01/22 1000 AC 01/23 PO 0909 Results Last 48 Hrs of Labs/Mics: Laboratory Tests 01/23/17 0639: Anion Gap 11, Estimated GFR > 60, BUN/Creatinine Ratio 38.3 H, CBC w Diff NO MAN DIFF REQ, RBC 4.78, MCV 90.3, MCH 29.6, RDW 13.3, MPV 10.6 H, Gran % 81.6 H, Lymphocytes % 12.3 L, Monocytes % 6.1, Eosinophils % 0, Basophils % 0 L, Absolute Granulocytes 9.8 H, Absolute Lymphocytes 1.5, Absolute Monocytes 0.7 H, Absolute Eosinophils 0, Absolute Basophils 0, PUBS MCHC 32.8 L 01/22/17 0729: APTT 50 H 01/22/17 0630: Anion Gap 9, Estimated GFR > 60, BUN/Creatinine Ratio 28.0 H, CBC w Diff NO MAN DIFF REQ, RBC 4.92, MCV 90.4, MCH 29.9, RDW 13.3, MPV 10.7 H, Gran % 81.2 H, Lymphocytes % 15.6 L, Monocytes % 2.8, Eosinophils % 0.1, Basophils % 0.3, Absolute Granulocytes 6.1, Absolute Lymphocytes 1.2, Absolute Monocytes 0.2, Absolute Eosinophils 0, Absolute Basophils 0, PUBS MCHC 33.1 01/22/17 0110: Troponin I 0.02 01/21/17 1935: Lactic Acid 1.8, Troponin I 0.02 01/21/17 1756: Urine Color YEL, Urine Clarity HAZY H, Urine pH 6.0, Ur Specific [place] >= 1.030, Urine Protein 100 H, Urine Ketones NEG, Urine Nitrite NEG, Urine Bilirubin NEG, Urine Urobilinogen 0.2, Ur Leukocyte Esterase NEG, Ur Microscopic SEDIMENT EXAMINED, Urine RBC 1-3, Urine WBC 1-3 H, Ur Epithelial Cells MANY H, Urine Mucus FEW, Urine Hemoglobin TRACE-INTACT, Urine Glucose 250 H 01/21/17 1543: Lactic Acid 2.5 H Microbiology 01/21 1757 URINE ROUT: Legionella Antigen - COMP 01/21 1757 URINE ROUT: Streptococcus pneumoniae Antigen (M - COMP 01/21 1757 URINE ROUT: Urine Culture - COMP 01/22 1756 NASOPHARYN: Influenza Virus A & B Rapid Smear - COMP Recent Imaging Studies: CTA chest: 1. No evidence of pulmonary embolism. 2. No focal consolidation. Similar tree-in-bud opacities within the apical posterior left upper lobe which may represent a small area of pneumonia. Slight interval increase in patchy opacities at the lung bases which may represent atelectasis or evolving pneumonia. 3. Scattered bilateral pulmonary nodules. These were previously described in detail on the CT chest from January 21, 2017. 4. Ectatic descending thoracic aorta. Lower extremity Doppler study: Occlusive thrombus within the left posterior and left anterior tibial veins. The remaining veins of the bilateral lower extremities are patent, without evidence of deep venous thrombosis. Echocardiogram 01/22/17: Technically difficult study. Normal global left ventricular size, wall thickness, systolic function with no obvious regional wall motion abnormalities. Left ventricular ejection fraction is estimated at > 55 %. Right ventricle not well visualized, grossly normal. Mild left atrial dilatation. Unable to estimate the right ventricular systolic pressure. Assessment/Plan Assessment/Plan Assessment: 1. Community acquired pneumonia 2. Atrial fibrillation 3. Occlusive thrombus within the left posterior and left anterior tibial veins Plan: * Continue oral Eliquis, 10 mg twice a day 7 days followed by 5 g twice a day * Continue metoprolol for rate control * Antibiotics as per the medical service Continue telemetry? Yes
[2017-01-23 16:13] VITALS: BP 158/98
--- NOTE | 2017-01-23 17:31 | NUR ---
END POLISHER AWARE OF BLOOD GLUCOSE. WILL START SLIDING SCALE OF INSULIN ON 01/24 PER ORDER.
[2017-01-24 00:45] VITALS: BP 134/80
--- NOTE | 2017-01-24 00:56 | NUR ---
ALERT AND ORIENTED X 3. VITAL SIGNS STABLE. DENIES CHEST PAIN. + PULSES STEADY GAIT. NO DISCOMFORT NOTED. WILL CONTINUE TO MONITOR
[2017-01-24 07:45] VITALS: BP 120/80
[2017-01-24 08:30] LABS: ABSOLUTE BASOPHIL COUNT 0 /CUMM (0.0-0.2); ABSOLUTE EOSINOPHIL COUNT 0 /CUMM (0.0-0.7); ABSOLUTE GRANULOCYTE CT 6.8 /CUMM (1.4-6.5); ABSOLUTE LYMPH COUNT 2.9 /CUMM (1.2-3.4); BASOPHIL % 0.3 % (0.0-2.0); EOSINOPHIL % 0.2 % (0-5); GRANULOCYTE % 63.1 % (42.2-75.2); HEMATOCRIT 42.7 % (37-47); MEAN CORPUSCULAR HGB 29.9 PG (27.0-31.0); MEAN CORPUSCULAR VOLUME 90.5 FL (81.0-99.0); MEAN PLATELET VOLUME 10.3 FL (7.4-10.4); PLATELET COUNT 190 /CUMM (130-400); RBC DISTRIBUTION WIDTH 13.3 % (11.5-14.5); RED BLOOD CELL CT 4.72 /CUMM (4.20-5.40); WHITE BLOOD CELL COUNT 10.7 /CUMM (4.8-10.8)
--- NOTE | 2017-01-24 08:58 | PN- Housestaff ---
EMPERATRIZ FRIEDMAN 01/24/17 0857: Subjective Follow-up For: Community acquired pneumonia Complaints: no complaints Tele-Events Since Last Visit: Atrial fibrillation, heart rate 87-108. Subjective: The patient was comfortable this morning. Did not have any complaints. No shortness of breath was noted. Currently on 2 L oxygen, and when ambulatory saturation was measured-she desaturated to less than 85%. After discussing with Dr. Tavares, who is the attending physician, it was a certain that that if the patient continues to require increasing amount of supplemental oxygen-patient would require another day of hospital stay. Discussed with the patient, and the nursing staff. Upon reattempting to measure oxygen saturation, her O2 sats dropped to 88% on 2 L oxygen at rest and found to be tachycardic-heart rate in the range of 130s, and was requiring more supplemental oxygen than 2 L. Review of Systems Constitutional: Reports: see HPI. Objective Last 24 Hrs of Vital Signs/I&O Vital Signs Date Time Temp Pulse Resp B/P Pulse O2 O2 Flow FiO2 Ox Delivery Rate 01/24 0745 98.1 83 18 120/80 92 Nasal 4.0L Cannula 01/24 0045 98.2 103 22 134/80 94 Nasal Cannula 01/24 0000 Nasal 4.0L Cannula 01/23 1625 94 Nasal 4.0L Cannula 01/23 1613 97.7 125 24 158/98 91 Nasal 4.0L Cannula 01/23 1600 Nasal 4.0L Cannula 01/23 0910 120 110/80 Intake & Output 01/24 1600 01/24 0800 01/24 0000 Intake Total 250 500 Output Total 350 900 Balance -100 -400 Intake, IV 10 Intake, Oral 240 500 Output, Urine 350 900 Physical Exam General Appearance: No Acute Distress Other Physical Findings: General Exam: AAOx3, No acute distress, Skin: No rashes, no breakdown HEENT: PERRLA, EOMI Neck: Supple, No JVD No cervical lymphadenopathy CVS: Reg Rate, Normal S1,S2, No MGR Resp: Decreased air entry bilaterally, rhonchi bilaterally Abdomen: Soft, No tenderness, Normal Bowel Sounds Neuro: Normal Speech, Strength 5/5 b/l x 4 extremities, Sensation intact, CN III -XII NL, Reflexes 2+ Extremities: No cyanosis, pedal edema Current Medications: Current Medications Sig/Harmony Start time Last Medication Dose Route Stop Time Status Admin Acetaminophen 650 MG Q6P PRN 01/21 1730 AC PO Acetaminophen/ 1 TAB Q6P PRN 01/21 1730 AC Hydrocodone Bitart PO Albuterol Sulfate 3 ML EVERY 4 HRS/AWAKE 01/22 0800 AC 01/23 INH 202 Alprazolam 0.5 MG ONCE ONE 01/24 0300 DC 01/24 PO 01/24 0301 0250 Apixaban 10 MG BID 01/22 1145 AC 01/23 PO 2218 Azithromycin 500 MG DAILY 01/22 1000 AC 01/23 Sodium Chloride 250 ML IV 0910 Ceftriaxone Sodium 1,000 MG DAILY 01/22 1000 AC 01/23 IV 0910 Ibuprofen 600 MG Q8P PRN 01/22 1015 AC 01/24 PO 0243 Insulin Aspart 0 TIDAC 01/24 0800 AC 01/24 SC 0759 Ipratropium [place] 2.5 ML EVERY 4 HRS/AWAKE 01/22 0800 AC 01/23 INH 202 Methylprednisolone 40 MG DAILY 01/24 1000 AC IV Methylprednisolone 40 MG Q12 01/21 2200 DC 01/23 IV 0910 Metoprolol Succinate 150 MG DAILY 01/23 1000 AC 01/23 PO 0910 Oxycodone/ 2 TAB Q6P PRN 01/21 1730 AC Acetaminophen PO Venlafaxine HCl 75 MG DAILY 01/22 1000 AC 01/23 PO 0909 Last 24 Hrs of Lab/Parrish Results Last 24 Hrs of Labs/Mics: Laboratory Tests 01/24/17 0725: CBC w Diff NO MAN DIFF REQ, RBC 4.72, MCV 90.5, MCH 29.9, RDW 13.3, MPV 10.3, Gran % 63.1, Lymphocytes % 27.5, Monocytes % 8.9, Eosinophils % 0.2, Basophils % 0.3, Absolute Granulocytes 6.8 H, Absolute Lymphocytes 2.9, Absolute Monocytes 1.0 H, Absolute Eosinophils 0, Absolute Basophils 0, PUBS MCHC 33.0 Assessment/Plan Assessment: Ms Murphy is a 71-year-old woman with a past history of atrial fibrillation, mental health issues is being evaluated for cough, fever, shortness of breath 4.-5 days. Plan - Acute hypoxemic respiratory failure secondary to community-acquired pneumonia * We will supplement oxygen by nasal cannula to keep SPO2 more than 92% * We will continue injection ceftriaxone and azithromycin. Discharge the patient on cefpodoxime which will cover the usual microorganisms for community- acquired pneumonia. * LRC culture not sent. * IV Solu-Medrol has been changed to by mouth prednisone. * TRC and nebs. Solu-Medrol and Ventolin has been added to discharge CMR. Steroid-induced hyperglycemia - * Blood sugar measurment TID HS * NovoLog according to low dose sliding scale Atrial fibrillation, new onset - HR 110 -120 * We will continue tablet Eliquis 10 mg twice a day for 10 days followed by 5 mg by mouth twice a day. * We will continue tablet metoprolol XL 150 mg by mouth daily. * If patient continued to have high heart rate, we can start the digoxin Superficial thrombophlebitis - * Warm compresses and Motrin as needed DVT prophylaxis-apixaban. Diet -heart healthy diet CODE STATUS -full code Problem List: 1. Rapid atrial fibrillation 2. Pneumonia Pain Ratin Pain Location: Lower extremities Pain Goal: Pain 4 or less Pain Plan: Tylenol when necessary Tomorrow's Labs & Rationales: Basic electrolyte panel to monitor ISRRAEL TAVARES 01/25/17 1101: Attending MD Review Statement Attending Statement Attending MD Statement: examined this patient, discuss w/resident/PA/DONOR RECRUITMENT MANAGER, agreed w/resident/PA/DONOR RECRUITMENT MANAGER, discussed with family, reviewed EMR data (avail), discussed with nursing, discussed with case mgmt, reviewed images Attending Assessment/Plan: 71F PMH atrial fibrillation on ASA, peripheral vascular disease, bronchitis/COPD , anxiety and depression, recurrent LE cellulitis admitted for severe dyspnea, wheezing, fever, chills, malaise, and RLE pain in the setting of pneumonia with acute respiratory failure, found to be in rapid atrial fibrillation, with LLE superficial thrombophlebitis found on LE doppler. Today patient reports her breathing is much better, though still not at baseline. She wishes to go home, but understands she still needs treatment. Denies leg pain. On 3L NC, still rapid atrial fibrillation 120's. Labs reviewed. 1. Left upper lobe pneumonia 2. Sepsis 3. Acute hypoxemic respiratory failure 4. Rapid atrial fibrillation 5. LLE superficial thrombophlebitis 6. RLE cellulitis 7. PVD 8. Acute exaceration of COPD Plan - Continue on telemetry - Continue Ceftriaxone and Azithromycin change to PO ABX - negative S.pneumo antigen, and Legionella antigen - PO steroid taper - Continue Metoprolol for rate control - echocardiogram EF 55% - eliquis started - Warm compresses and NSAIDs of LLE - Leg elevation - Continue breathing treatments - Continue home medications - DVT PPx - needs home oxygen
[2017-01-24] MEDS ORDERED: ELIQUIS5 M1 PO (11:24)
[2017-01-24] MEDS ORDERED: PREDNISONE20 M1 PO (11:25)
[2017-01-24] MEDS ORDERED: TOPROL XL100 M1 PO ×2 (11:25→18:20)
[2017-01-24] MEDS ORDERED: CEFPODOXIME PR200 M2 PO (11:31)
[2017-01-24] MEDS ORDERED: ACIDOPHILUS LA1 EACH PO (11:32)
[2017-01-24] MEDS ORDERED: SYMBICORT 16010.2 GM INH (11:46)
[2017-01-24] MEDS ORDERED: VENTOLIN HFA18 GM INH (11:46)
--- NOTE | 2017-01-24 11:55 | NUR ---
PT'S O2 SAT ON RA WAS 87-91% AT THIS TIME. AFTER AMBULATION HER O2 SAT WAS 84-86% ON RA AND SHE BECAME SOB.
[2017-01-24] MEDS ORDERED: PREDNISONE10 M2 PO (12:01)
--- NOTE | 2017-01-24 13:23 | PN- Cardiology ---
Subjective Subjective: Shortness of breath is somewhat better. Still requiring oxygen. No chest pain. No palpitations. No lightheadedness or dizziness. No nausea or vomiting. Objective Vital Signs and I&Os Vital Signs Date Time Temp Pulse Resp B/P Pulse O2 O2 Flow FiO2 Ox Delivery Rate 01/24 0909 115 108/62 01/24 0901 93 Nasal 2.0L Cannula 01/24 0800 93 Nasal 2.0L Cannula 01/24 0745 98.1 83 18 120/80 92 Nasal 4.0L Cannula 01/24 0045 98.2 103 22 134/80 94 Nasal Cannula 01/24 0000 Nasal 4.0L Cannula 01/23 1625 94 Nasal 4.0L Cannula 01/23 1613 97.7 125 24 158/98 91 Nasal 4.0L Cannula 01/23 1600 Nasal 4.0L Cannula Intake & Output 01/24 1600 01/24 0800 01/24 0000 01/23 1600 01/23 0800 01/23 0000 Intake Total 300 250 500 975 200 Output Total 350 900 775 400 200 Balance 300 -100 -400 200 -200 -200 Intake, IV 300 10 275 Intake, Oral 240 500 700 200 Number 0 Bowel Movements Output, Urine 350 900 775 400 200 Patient 239 lb Weight Physical Exam: Gen: NAD HEENT: normal Lungs: Decreased breath sounds, normal resp. effort Heart: Irregularly irregular S1, S2, 1/6 systolic murmur Abdomen: Soft, nontender, no masses Extremities: 1+ edema Neuro: Alert and oriented x 3, cranial nerves intact Current Medications: Current Medications Sig/Harmony Start time Last Medication Dose Route Stop Time Status Admin Acetaminophen 650 MG Q6P PRN 01/21 1730 AC PO Acetaminophen/ 1 TAB Q6P PRN 01/21 1730 AC Hydrocodone Bitart PO Albuterol Sulfate 3 ML EVERY 4 HRS/AWAKE 01/22 0800 AC 01/24 INH 0858 Alprazolam 0.5 MG ONCE ONE 01/24 0300 DC 01/24 PO 01/24 0301 0250 Apixaban 10 MG BID 01/22 1145 AC 01/24 PO 0909 Azithromycin 500 MG DAILY 01/22 1000 AC 01/24 Sodium Chloride 250 ML IV 0911 Ceftriaxone Sodium 1,000 MG DAILY 01/22 1000 AC 01/24 IV 0909 Ibuprofen 600 MG Q8P PRN 01/22 1015 AC 01/24 PO 0243 Insulin Aspart 0 TIDAC 01/24 0800 AC 01/24 SC 1226 Ipratropium [place] 2.5 ML EVERY 4 HRS/AWAKE 01/22 0800 AC 01/24 INH 0858 Methylprednisolone 40 MG DAILY 01/24 1000 DC 01/24 IV 1056 Metoprolol Succinate 150 MG DAILY 01/23 1000 AC 01/24 PO 0909 Oxycodone/ 2 TAB Q6P PRN 01/21 1730 AC Acetaminophen PO Prednisone 40 MG DAILY 01/25 1000 AC PO Venlafaxine HCl 75 MG DAILY 01/22 1000 AC 01/24 PO 0909 Results Last 48 Hrs of Labs/Mics: Laboratory Tests 01/24/17 0725: CBC w Diff NO MAN DIFF REQ, RBC 4.72, MCV 90.5, MCH 29.9, RDW 13.3, MPV 10.3, Gran % 63.1, Lymphocytes % 27.5, Monocytes % 8.9, Eosinophils % 0.2, Basophils % 0.3, Absolute Granulocytes 6.8 H, Absolute Lymphocytes 2.9, Absolute Monocytes 1.0 H, Absolute Eosinophils 0, Absolute Basophils 0, PUBS MCHC 33.0 01/23/17 0639: Anion Gap 11, Estimated GFR > 60, BUN/Creatinine Ratio 38.3 H, CBC w Diff NO MAN DIFF REQ, RBC 4.78, MCV 90.3, MCH 29.6, RDW 13.3, MPV 10.6 H, Gran % 81.6 H, Lymphocytes % 12.3 L, Monocytes % 6.1, Eosinophils % 0, Basophils % 0 L, Absolute Granulocytes 9.8 H, Absolute Lymphocytes 1.5, Absolute Monocytes 0.7 H, Absolute Eosinophils 0, Absolute Basophils 0, PUBS MCHC 32.8 L Recent Imaging Studies: CTA chest: 1. No evidence of pulmonary embolism. 2. No focal consolidation. Similar tree-in-bud opacities within the apical posterior left upper lobe which may represent a small area of pneumonia. Slight interval increase in patchy opacities at the lung bases which may represent atelectasis or evolving pneumonia. 3. Scattered bilateral pulmonary nodules. These were previously described in detail on the CT chest from January 21, 2017. 4. Ectatic descending thoracic aorta. Assessment/Plan Assessment/Plan Assessment: 1. Community acquired pneumonia 2. Atrial fibrillation 3. Occlusive thrombus within the left posterior and left anterior tibial veins Plan: * Continue oral Eliquis, 10 mg twice a day 7 days followed by 5 g twice a day * Continue metoprolol for rate control * Antibiotics as per the medical service Continue telemetry? Yes
[2017-01-24 16:30] VITALS: BP 118/88
[2017-01-24 17:57] VITALS: BP 116/70
[2017-01-25] VITALS: BP 128/78
--- NOTE | 2017-01-25 07:49 | PN- Housestaff ---
EMPERATRIZ FRIEDMAN 01/25/17 0748: Subjective Follow-up For: - CAP Complaints: no complaints Tele-Events Since Last Visit: Atrial fibrillation, heart rate 91-118. Subjective: Patient comfortable this morning. She does not have any complaints. Shortness of breath improved. Vitals remained within upper limits. Remained afebrile overnight. Continues to be on 3 L oxygen with oxygen saturation above 94%. Review of Systems Constitutional: Reports: see HPI. Objective Last 24 Hrs of Vital Signs/I&O Vital Signs Date Time Temp Pulse Resp B/P Pulse O2 O2 Flow FiO2 Ox Delivery Rate 01/25 0000 93 Nasal 3.0L Cannula 01/25 0000 98.5 97 20 128/78 93 Nasal 4.0L Cannula 01/24 1918 143 116/70 01/24 1757 118 16 116/70 90 Nasal 3.0L Cannula 01/24 1630 98.3 103 20 118/88 90 Nasal 2.0L Cannula 01/24 1600 90 Nasal 3.0L Cannula 01/24 1550 88 Nasal 2.0L Cannula 01/24 0909 115 108/62 01/24 0901 93 Nasal 2.0L Cannula 01/24 0800 93 Nasal 2.0L Cannula Intake & Output 01/25 0800 01/25 0000 01/24 1600 Intake Total 305 880 1475 Output Total 400 700 500 Balance -160 -300 700 Intake, IV 0 300 Intake, Oral 240 400 900 Number 0 0 Bowel Movements Output, Urine 400 700 500 Physical Exam General Appearance: No Acute Distress Other Physical Findings: General Exam: AAOx3, No acute distress, Skin: No rashes, no breakdown HEENT: PERRLA, EOMI Neck: Supple, No JVD No cervical lymphadenopathy CVS: Reg Rate, Normal S1,S2, No MGR Resp: Decreased air entry bilaterally, rhonchi/rales present bilaterally. Abdomen: Soft, No tenderness, Normal Bowel Sounds Neuro: Normal Speech, Strength 5/5 b/l x 4 extremities, Sensation intact, CN III -XII NL, Reflexes 2+ Extremities: No cyanosis, pedal edema Current Medications: Current Medications Sig/Harmony Start time Last Medication Dose Route Stop Time Status Admin Acetaminophen 650 MG Q6P PRN 01/21 1730 AC PO Acetaminophen/ 1 TAB Q6P PRN 01/21 1730 AC Hydrocodone Bitart PO Albuterol Sulfate 3 ML EVERY 4 HRS/AWAKE 01/22 0800 AC 01/24 INH 2014 Alprazolam 0.5 MG ONCE ONE 01/25 0300 DC 01/25 PO 01/25 0301 0318 Apixaban 10 MG BID 01/22 1145 AC 01/24 PO 2115 Azithromycin 500 MG DAILY 01/22 1000 AC 01/24 Sodium Chloride 250 ML IV 0911 Ceftriaxone Sodium 1,000 MG DAILY 01/22 1000 AC 01/24 IV 0909 Ibuprofen 600 MG Q8P PRN 01/22 1015 AC 01/24 PO 0243 Insulin Aspart 3 UNITS ONCE ONE 01/24 2215 DC 01/24 SC 01/24 2216 2304 Insulin Aspart 0 TIDAC 01/24 0800 AC 01/24 SC 1700 Ipratropium [place] 2.5 ML EVERY 4 HRS/AWAKE 01/22 0800 AC 01/24 INH 2014 Methylprednisolone 40 MG DAILY 01/24 1000 DC 01/24 IV 1056 Metoprolol Succinate 200 MG DAILY 01/25 1000 AC PO Metoprolol Succinate 50 MG ONCE ONE 01/24 1830 DC 01/24 PO 01/24 1831 1918 Metoprolol Succinate 150 MG DAILY 01/23 1000 DC 01/24 PO 0909 Oxycodone/ 2 TAB Q6P PRN 01/21 1730 AC Acetaminophen PO Patient Medication 1 UNIT ONE NR 01/24 1830 MI Teaching ED 01/24 1900 Prednisone 40 MG DAILY 01/25 1000 AC PO Venlafaxine HCl 75 MG DAILY 01/22 1000 AC 01/24 PO 0909 Last 24 Hrs of Lab/Parrsih Results Last 24 Hrs of Labs/Mics: Laboratory Tests 01/25/17 0644: Sodium Pending, Potassium Pending, Chloride Pending, Carbon Dioxide Pending, Anion Gap Pending, BUN Pending, Creatinine Pending, BUN/Creatinine Ratio Pending Orders Fingersticks (last 24 hrs): 300, 250, 250. Assessment/Plan Assessment: Ms Murphy is a 71-year-old woman with a past history of atrial fibrillation, mental health issues is being evaluated for cough, fever, shortness of breath 4-5 days. Plan - Acute hypoxemic respiratory failure secondary to community-acquired pneumonia * Titrate oxygen as tolerated. * We will continue injection ceftriaxone and azithromycin. Discharge the patient on cefpodoxime which will cover the usual microorganisms for community- acquired pneumonia. * LRC culture not sent. * Metoprolol 40 mg by mouth daily. Prednisone taper at the time of discharge. * TRC and nebs. Symbicort and Ventolin has been added to discharge CMR. Steroid-induced hyperglycemia - * Blood sugar measurment TID HS * NovoLog according to low dose sliding scale Atrial fibrillation, new onset - HR 110 -120 * We will continue tablet Eliquis 10 mg twice a day for 10 days followed by 5 mg by mouth twice a day. * We will continue tablet metoprolol XL 200mg by mouth daily. * Digoxin IV 250 g 1 IV. 125 g by mouth every 48. Superficial thrombophlebitis - * Warm compresses and Motrin as needed DVT prophylaxis-apixaban. Diet -heart healthy diet CODE STATUS -full code Problem List: 1. Rapid atrial fibrillation 2. Pneumonia Pain Ratin Pain Location: Back Pain Goal: Pain 4 or less Pain Plan: Ibuprofen 600 mg every 8 when necessary Tomorrow's Labs & Rationales: No labs necessary. DVT/Prophylaxis: pharmacological (eliquis) Consulting Request: Consulting Specialty: Cardiology Discharge Plan Discharge Disposition: STR/NH Stable for Discharge? Yes Anticipated Discharge (Day): tomorrow If Discharged Today/In 24 Hrs: enter [facility] at surprise discharge ord ISRRAEL TAVARES 01/25/17 1103: Attending MD Review Statement Attending Statement Attending MD Statement: examined this patient, discuss w/resident/PA/FIXED ROUTE BUS OPERATOR, agreed w/resident/PA/FIXED ROUTE BUS OPERATOR, discussed with family, reviewed EMR data (avail), discussed with nursing, discussed with case mgmt, reviewed images Attending Assessment/Plan: 71F PMH atrial fibrillation on ASA, peripheral vascular disease, bronchitis/COPD , anxiety and depression, recurrent LE cellulitis admitted for severe dyspnea, wheezing, fever, chills, malaise, and RLE pain in the setting of pneumonia with acute respiratory failure, found to be in rapid atrial fibrillation, with LLE superficial thrombophlebitis found on LE doppler. Today patient reports her breathing is much better, though still not at baseline. She wishes to go home, but understands she still needs treatment. Denies leg pain. On 3L NC, still rapid atrial fibrillation 120's. Labs reviewed. 1. Left upper lobe pneumonia 2. Sepsis 3. Acute hypoxemic respiratory failure 4. Rapid atrial fibrillation 5. LLE superficial thrombophlebitis 6. RLE cellulitis 7. PVD 8. Acute exaceration of COPD Plan - Continue on telemetry - Continue Ceftriaxone and Azithromycin change to PO ABX - negative S.pneumo antigen, and Legionella antigen - PO steroid taper - Continue Metoprolol for rate control - echocardiogram EF 55% - eliquis started - Warm compresses and NSAIDs of LLE - Leg elevation - Continue breathing treatments - Continue home medications - DVT PPx - needs home oxygen - d/c today
[2017-01-25 08:08] VITALS: BP 120/100
--- NOTE | 2017-01-25 11:31 | PN- Cardiology ---
Subjective Subjective: Remains on nasal cannula. Shortness of breath improved but not resolved. Denies any chest pain or palpitations. Objective Vital Signs and I&Os Vital Signs Date Time Temp Pulse Resp B/P Pulse O2 O2 Flow FiO2 Ox Delivery Rate 01/25 1029 102 126/84 01/25 0811 92 Nasal 3.0L Cannula 01/25 0808 98.0 88 20 120/100 98 Nasal 4.0L Cannula 01/25 0000 93 Nasal 3.0L Cannula 01/25 0000 98.5 97 20 128/78 93 Nasal 4.0L Cannula 01/24 1918 143 116/70 01/24 1757 118 16 116/70 90 Nasal 3.0L Cannula 01/24 1630 98.3 103 20 118/88 90 Nasal 2.0L Cannula 01/24 1600 90 Nasal 3.0L Cannula 01/24 1550 88 Nasal 2.0L Cannula Intake & Output 01/25 1600 01/25 0800 01/25 0000 01/24 1600 01/24 0800 01/24 0000 Intake Total 022 252 6588 250 500 Output Total 400 700 500 350 900 Balance -160 -300 700 -100 -400 Intake, IV 0 300 10 Intake, Oral 240 400 900 240 500 Number 0 0 Bowel Movements Output, Urine 400 700 500 350 900 Physical Exam: General: no apparent distress. Alert. On nasal cannula. Obese Eyes: No obvious scleral icterus. HEENT: No jugular venous distention or abnormal jugular venous pulsations. Cardiovascular: Normal intensity S1/S2. Irregular tachycardia. One out of 6 systolic murmur Respiratory: Mildly decreased air entry bilaterally Abdomen: no guarding or rebound tenderness. Musculoskeletal: No clubbing or cyanosis noted, 1+ lower extremity edema Skin: Warm Neurologic: No gross focal deficits noted. Current Medications: Current Medications Sig/Harmony Start time Last Medication Dose Route Stop Time Status Admin Acetaminophen 650 MG Q6P PRN 01/21 1730 AC PO Acetaminophen/ 1 TAB Q6P PRN 01/21 1730 AC Hydrocodone Bitart PO Albuterol Sulfate 3 ML EVERY 4 HRS/AWAKE 01/22 0800 AC 01/25 INH 0808 Alprazolam 0.5 MG ONCE ONE 01/25 0300 DC 01/25 PO 01/25 0301 0318 Apixaban 10 MG BID 01/22 1145 AC 01/25 PO 1029 Azithromycin 500 MG DAILY 01/22 1000 AC 01/25 Sodium Chloride 250 ML IV 1028 Ceftriaxone Sodium 1,000 MG DAILY 01/22 1000 AC 01/25 IV 1028 Ibuprofen 600 MG Q8P PRN 01/22 1015 AC 01/24 PO 0243 Insulin Aspart 3 UNITS ONCE ONE 01/24 2215 DC 01/24 SC 01/24 2216 2304 Insulin Aspart 0 TIDAC 01/24 0800 AC 01/25 SC 0810 Ipratropium [place] 2.5 ML EVERY 4 HRS/AWAKE 01/22 0800 AC 01/25 INH 0807 Metoprolol Succinate 200 MG DAILY 01/25 1000 AC 01/25 PO 1029 Metoprolol Succinate 50 MG ONCE ONE 01/24 1830 DC 01/24 PO 01/24 1831 1918 Metoprolol Succinate 150 MG DAILY 01/23 1000 DC 01/24 PO 0909 Oxycodone/ 2 TAB Q6P PRN 01/21 1730 AC Acetaminophen PO Patient Medication 1 UNIT ONE NR 01/24 1830 DC 01/25 Teaching ED 01/24 1900 1029 Prednisone 40 MG DAILY 01/25 1000 AC 01/25 PO 1029 Venlafaxine HCl 75 MG DAILY 01/22 1000 AC 01/25 PO 1029 Results Last 48 Hrs of Labs/Mics: Laboratory Tests 01/25/17 0644: Anion Gap 5, Estimated GFR > 60, BUN/Creatinine Ratio 40.0 H 01/24/17 0725: CBC w Diff NO MAN DIFF REQ, RBC 4.72, MCV 90.5, MCH 29.9, RDW 13.3, MPV 10.3, Gran % 63.1, Lymphocytes % 27.5, Monocytes % 8.9, Eosinophils % 0.2, Basophils % 0.3, Absolute Granulocytes 6.8 H, Absolute Lymphocytes 2.9, Absolute Monocytes 1.0 H, Absolute Eosinophils 0, Absolute Basophils 0, PUBS MCHC 33.0 Recent Imaging Studies: Echo: Technically difficult study. Normal global left ventricular size, wall thickness, systolic function with no obvious regional wall motion abnormalities. Left ventricular ejection fraction is estimated at > 55 %. Right ventricle not well visualized, grossly normal. Mild left atrial dilatation. Unable to estimate the right ventricular systolic pressure. Damien June M.D. (Electronically Signed) Final Date: 22 January 2017 21:24 CTA: IMPRESSION: 1. No evidence of pulmonary embolism. 2. No focal consolidation. Similar tree-in-bud opacities within the apical posterior left upper lobe which may represent a small area of pneumonia. Slight interval increase in patchy opacities at the lung bases which may represent atelectasis or evolving pneumonia. 3. Scattered bilateral pulmonary nodules. These were previously described in detail on the CT chest from January 21, 2017. 4. Ectatic descending thoracic aorta. Telemetry tracings were personally reviewed and show atrial fibrillation with borderline heart rate control Assessment/Plan Assessment/Plan 1. Respiratory insufficiency with hypoxia 2. Tachycardia 3. History of atrial fibrillation not on outpatient anticoagulation, now started on Elqiuis 4. Occlusive thrombus within the left posterior and left anterior tibial veins 5. History of hypertension/diabetes mellitus 6. History of cellulitis likely with a component of lymphedema 7. Possible pneumonia Review of telemetry shows heart rate control is borderline despite now being on increased beta eder with Toprol-XL 200 mg by mouth daily. Remains on Eliquis with stable hemoglobin and no obvious bleeding. Remains on nasal cannula oxygen, no evidence of pulmonary embolism on the CTA. Recommend adding low-dose digoxin for additional rate control, would give 0.25 mg IV x 1 followed by 0.125 mg every other day. Wean off nasal cannula oxygen as tolerated. Marek June MD [facility] Continue telemetry? Yes
[2017-01-25 16:49] VITALS: BP 124/80
[2017-01-26 00:49] VITALS: BP 112/72
--- NOTE | 2017-01-26 07:20 | PN- Housestaff ---
EMPERATRIZ FRIEDMAN 01/26/17 0716: Subjective Follow-up For: Community-acquired pneumonia DVT Complaints: no complaints Tele-Events Since Last Visit: Atrial flutter, heart rate 70-90s. Subjective: Patient comfortable this morning. Did not have any complaints. Oxygen saturation above 92% on 3 L oxygen. He remained afebrile overnight. Blood pressure stable. Review of Systems Constitutional: Reports: see HPI. Objective Last 24 Hrs of Vital Signs/I&O Vital Signs Date Time Temp Pulse Resp B/P Pulse O2 O2 Flow FiO2 Ox Delivery Rate 01/26 0049 98.4 81 20 112/72 96 Room Air 01/26 0000 Nasal 3.0L Cannula 01/25 1939 80 Room Air 01/25 1736 132 124/80 01/25 1649 98.5 110 20 124/80 95 Nasal Cannula 01/25 1600 94 Nasal 3.0L Cannula 01/25 1029 102 126/84 01/25 0811 92 Nasal 3.0L Cannula 01/25 0808 98.0 88 20 120/100 98 Nasal 4.0L Cannula 01/25 0800 92 Nasal 3.0L Cannula Intake & Output 01/26 0800 01/26 0000 01/25 1600 Intake Total 60 410 900 Output Total 400 750 Balance -340 -340 900 Intake, IV 10 10 300 Intake, Oral 50 400 600 Number 0 2 Bowel Movements Output, Urine 400 750 Physical Exam General Appearance: No Acute Distress Other Physical Findings: General Exam: AAOx3, No acute distress, Skin: No rashes, no breakdown HEENT: PERRLA, EOMI Neck: Supple, No JVD No cervical lymphadenopathy CVS: Reg Rate, Normal S1,S2, No MGR Resp: Normal air entry, rhonchi positive. Abdomen: Soft, No tenderness, Normal Bowel Sounds Neuro: Normal Speech, Strength 5/5 b/l x 4 extremities, Sensation intact, CN III -XII NL, Reflexes 2+ Extremities: No cyanosis, pedal edema Current Medications: Current Medications Sig/Harmony Start time Last Medication Dose Route Stop Time Status Admin Acetaminophen 650 MG Q6P PRN 01/21 1730 AC PO Acetaminophen/ 1 TAB Q6P PRN 01/21 173 AC Hydrocodone Bitart PO Albuterol Sulfate 3 ML EVERY 4 HRS/AWAKE 01/22 08 AC 01/25 INH 1939 Alprazolam 0.5 MG ONCE ONE 01/25 1430 DC 01/25 PO 01/25 1431 1420 Apixaban 10 MG BID 01/22 1145 AC 01/25 PO 2225 Azithromycin 500 MG DAILY 01/22 1000 AC 01/25 Sodium Chloride 250 ML IV 1028 Ceftriaxone Sodium 1,000 MG DAILY 01/22 1000 AC 01/25 IV 1028 Digoxin 0.25 MG ONCE ONE 01/25 1145 DC 01/25 IV 01/25 1146 1736 Ibuprofen 600 MG Q8P PRN 01/22 1015 AC 01/24 PO 0243 Insulin Aspart 1 UNITS ONCE ONE 01/25 2100 DC 01/25 SC 01/25 2101 2225 Insulin Aspart 0 TIDAC 01/24 0800 AC 01/25 SC 1738 Ipratropium [place] 2.5 ML EVERY 4 HRS/AWAKE 01/22 0800 AC 01/25 INH 1939 Metoprolol Succinate 200 MG DAILY 01/25 1000 AC 01/25 PO 1029 Oxycodone/ 2 TAB Q6P PRN 01/21 1730 AC Acetaminophen PO Prednisone 40 MG DAILY 01/25 1000 AC 01/25 PO 1029 Venlafaxine HCl 75 MG DAILY 01/22 1000 AC 01/25 PO 1029 Assessment/Plan Assessment: Ms Murphy is a 71-year-old woman with a past history of atrial fibrillation, mental health issues is being evaluated for cough, fever, shortness of breath 4-5 days. Plan - Acute hypoxemic respiratory failure secondary to community-acquired pneumonia * Titrate oxygen as tolerated. * We will continue injection ceftriaxone and azithromycin. Discharge the patient on cefpodoxime which will cover the usual microorganisms for community- acquired pneumonia. * LRC culture not sent. * Metoprolol 40 mg by mouth daily. Prednisone taper at the time of discharge. * TRC and nebs. Symbicort and Ventolin has been added to discharge CMR. * Serum bicarbonate elevated, likely from metabolic compensation. Steroid-induced hyperglycemia - * Blood sugar measurment TID HS * NovoLog according to low dose sliding scale Atrial fibrillation, new onset - HR 110 -120 * We will continue tablet Eliquis 10 mg twice a day for 10 days followed by 5 mg by mouth twice a day. * We will continue tablet metoprolol XL 200mg by mouth daily. * Digoxin IV 250 g 1 IV. 125 g by mouth every 48. Superficial thrombophlebitis - * Warm compresses and Motrin as needed DVT prophylaxis-apixaban. Diet -heart healthy diet CODE STATUS -full code Problem List: 1. Rapid atrial fibrillation 2. Pneumonia Pain Ratin Pain Location: None Pain Goal: Pain 4 or less Pain Plan: Tylenol when necessary Tomorrow's Labs & Rationales: Basic electrolyte panel.-To monitor for bicarbonate, serum creatinine. Consulting Request: Consulting Specialty: Cardiology BERKLEY KAUR MD 01/26/17 1628: Attending MD Review Statement Attending Statement Attending MD Statement: examined this patient, discuss w/resident/PA/[employer] DISPLAY BUILDER, agreed w/resident/PA/[employer] DISPLAY BUILDER, reviewed EMR data (avail) Attending Assessment/Plan: 71F PMH atrial fibrillation on ASA, peripheral vascular disease, bronchitis/COPD , anxiety and depression, recurrent LE cellulitis admitted for severe dyspnea, wheezing, fever, chills, malaise, and RLE pain in the setting of pneumonia with acute respiratory failure, found to be in rapid atrial fibrillation, with LLE superficial thrombophlebitis found on LE doppler. Breathing is improved but still with bilateral wheezing on exam, though this is improving. Oxygen saturation down to 2L NC, but patient is on room air at home. 1. Left upper lobe pneumonia 2. Sepsis 3. Acute hypoxemic respiratory failure 4. Rapid atrial fibrillation 5. LLE superficial thrombophlebitis 6. RLE cellulitis 7. PVD 8. Acute exaceration of COPD Plan - Discontinue telemetry - Continue Ceftriaxone and Azithromycin change to PO Abx tomorrow - negative S.pneumo antigen, and Legionella antigen - Continue Prednisone taper - Continue Metoprolol for rate control - echocardiogram EF 55% - Continue Eliquis for a-fib - Warm compresses and NSAIDs of LLE - Leg elevation - Continue breathing treatments - Continue home medications - Anticiapted discharge tomorrow on home oxygen
[2017-01-26 09:07] VITALS: BP 122/90
[2017-01-26] MEDS ORDERED: CEFPODOXIME PR200 M2 PO (09:13)
--- NOTE | 2017-01-26 09:28 | Discharge Summary ---
Visit Information Visit Dates Admission Date: 01/21/17 Discharge Date: 01/27/17 Hospital Course Course Attending Physician: BERKLEY KAUR MD Primary Care Physician: YUNG PLUMMER,CELE Ordoñez Consulting Request: Consulting Specialty: Cardiology Hospital Course: Ms Murphy is a 71-year-old woman with a past history of atrial fibrillation( ? paroxysmal) , mental health issues is being evaluated for cough, fever, shortness of breath 4-5 days prior to admission. No formal diagnosis of COPD was ever made. Did not use any home oxygen. At the time of admission, temperature 99.8, pulse rate 131, respiration 22, blood pressure 151/67, pulse ox-95% on 3 L. W BC 10.1, hemoglobin 8.9 (baseline 9.7), sodium 131, sodium 4.3, AST 59, ALT 91, alkaline phosphatase 99, proBNP slightly elevated 442, urinalysis revealed elevated protein, negative urine leukocyte esterase, negative nitrate. Radiological findings-revealed chest x-ray-focal area of consolidation in the right lung base. This was confirmed by a CAT scan chest which revealed small area of tree-in-bud opacity in apical posterior left upper lobe. Several small nodules were noted. Lower extremity ultrasound Doppler revealed occlusive thrombus within the left posterior and left anterior tibial veins. CTA chest revealed no evidence of pulmonary embolism. No focal area of consolidation was found, however small apical posterior left upper lobe tree-in- bud appearance was found. Evidence of pulmonary nodules (to be followed up with the radio station manager). Legionella, strep pneumo urinary antigen negative. Negative for rapid viral influenza A, B. Lower respiratory cultures could not be done. Below is the problem list and plan: #1 cough, shortness of breath-likely due to acute exacerbation of COPD and/or pneumonia. She was treated with ceftriaxone and azithromycin, which was transitioned to oral cefpodoxime for a total of 7 days. Reported penicillin allergy, but tolerated cephalosporins. No leukocytosis. Was requiring increasing amount of oxygen during the stay in the hospital, and so pulmonary evaluation was obtained. PE was in the differential, which was ruled out by CTA. There was no evidence of heart failure. She was treated with intravenous Solu-Medrol which was transitioned to by mouth prednisone (short taper, as per patient's request). She was discharged on 2 L nasal cannula. She was discharged on Symbicort, albuterol and advised her to follow-up with Dr. Negron within 1 week for outpatient evaluation for COPD. #2 atrial fibrillation and deep venous thromboses: After reviewing the records of the primary care physician, and discussion with Damien June MD ( clinical fellow) it was ascertained that the patient might have had atrial fibrillation for a long time. There was no definitive way of finding out unless an EKG was checked in the last 1-2 years. So it was treated as paroxysmal atrial fibrillation. Since the patient had deep venous thrombosis, it was prudent to anticoagulate the patient regardless with venous thrombosis dose regimen-apixiban. Dose of metoprolol and digoxin was adjusted, for adequate rate control. Other medical problems addressed were- hypertension, diabetes, lymphedema. She was monitored on telemetry unit. Allergies: Coded Allergies: Penicillins (Severe, HYPOTENSION 01/21/17) clindamycin (Severe, RASH, HIVES 01/21/17) Pertinent Lab Results: RAD - XRY-PORTABLE CHEST XRAY Shallow inspiration limits the examination. There may be a focal area of consolidation at the right lung base. When feasible, recommend PA and lateral chest radiograph for further evaluation. CAT - CT CHEST WO IV CONTRAST 01/21/17-1413 There is some cardiomegaly. There is no edema. There is a small area of tree-in-bud opacity in the apical posterior leftupper lobe which may represent a small area of pneumonia. There is thickening of some of the small airways perhaps related to reactiveairways disease or chronic inflammation. There are several nodules present. The largest has a mean diameter of 0.4 cm US - US-EXT BILAT VENOUS DOPPLER 01/21/17-1703 Occlusive thrombus within the left posterior and left anterior tibial veins. The remaining veins of the bilateral lower extremities are patent, without evidence of deep venous thrombosis. CAT - CTA CHEST-PULMONARY EMBOLISM 1. No evidence of pulmonary embolism. 2. No focal consolidation. Similar tree- in-bud opacities within the apical posterior left upper lobe which may represent a small area of pneumonia. Slight interval increase in patchy opacities at the lung bases which may represent atelectasis or evolving pneumonia. 3. Scattered bilateral pulmonary nodules. These were previously described in detail on the CT chest from January 21, 2017. 4. Ectatic descending thoracic aorta. VTE: negative ECHOCARDIOGRAM 01/22/17 Technically difficult study. Normal global left ventricular size, wall thickness, systolic function with no obvious regional wall motion abnormalities. Left ventricular ejection fraction is estimated at > 55 %. Right ventricle not well visualized, grossly normal. Mild left atrial dilatation. Unable to estimate the right ventricular systolic pressure. Disposition Summary Disposition Principal Diagnosis: Paroxysmal atrial fibrillation Additional Diagnosis: Bronchitis/pneumonia Discharge Disposition: home or self care Discharge Instructions General Discharge Information Code Status: Full Code Patient's Diet: Heart healthy diet Patient's Activity: As tolerated Follow-Up Instructions/Appts: #1 please follow with the primary care doctor within 1 week of discharge. #2 Please follow up with her clinical fellow within 1 week of discharge. #3 please follow with your radio station manager within 1 week of discharge. Medications at Discharge Discharge Medications: Stop taking the following medications: Metoprolol Succinate (Metoprolol Succinate) 100 MG TAB.ER.24H ORAL DAILY Qty = 90 Aspirin (Aspirin*) 325 MG TABLET ORAL DAILY Continue taking these medications: Venlafaxine HCl (Venlafaxine HCl ER) 75 MG CAP.ER.24H 1 Capsule ORAL DAILY Qty = 30 Comments: Last Taken:01/27/17 Time:9 AM Alprazolam (Alprazolam) 0.5 MG TABLET 1 Tablet ORAL DAILY NEEDED Qty = 90 Comments: Last Taken: 01/26/17 Time: 10 pm Cefpodoxime Proxetil (Cefpodoxime Proxetil) 200 MG TABLET 1 Tablet ORAL TWICE DAILY Days = 3 Instructions: pt allergic to pencillin, but can tolerate cefalosporins Comments: Last Taken:01/25/17 GIVEN IN IV FORM Time:1000 This prescription has been renewed Start taking the following new medications: Prednisone (Prednisone) 10 MG TABLET 1 Tablet ORAL DAILY Qty = 12 No Refills Instructions: On Take Please take- 01/27-01/28 30 MG 01/29-01/30 20 MG 01/31-02/01 10 MG Please stop on 02/01/17. Then Stop Comments: Last Taken:40 MG 01/26/17 Time:1000 Apixaban (Eliquis) 5 MG TABLET 1 Tablet ORAL TWICE DAILY Qty = 90 No Refills Instructions: please take 2 tabs(10 mg) twice daily 01/26-01/28. 1 tab( 5 mg) twice daily after 01/29. Comments: Last Taken:01/27/17 Time:9 AM Lactobacillus Acidophilus (Acidophilus Lactobacillus) 1 EACH CAPSULE 1 Capsule ORAL DAILY Days = 30 No Refills Instructions: . Comments: NOT GIVEN AT HOSPITAL Budesonide/Formoterol Fumarate (Symbicort 160-4.5 Mcg Inhaler) 160 MCG-4.5 MCG/ ACTUATION HFA.AER.AD 2 Puff Inhale through mouth TWICE DAILY Qty = 1 Refills = 2 Instructions: . Comments: Last Taken: NOT GIVEN AT HOSPITAL Time: Metoprolol Succ XL (Toprol XL) 100 MG TAB.ER.24H 2 Tablet ORAL DAILY Qty = 30 Refills = 2 Instructions: .. Comments: Last Taken:01/27/17 Time: 9 AM Albuterol Sulfate (Ventolin Hfa) 90 MCG HFA.AER.AD 2 Puff Inhale through mouth EVERY 4-6 HOURS NEEDED as needed for difficulty breathing Qty = 1 Refills = 1 Instructions: . Comments: Last Taken: 01/26/17 Time: 7 PM Cefpodoxime Proxetil (Cefpodoxime Proxetil) 200 MG TABLET 1 Tablet ORAL TWICE DAILY Days = 4 No Refills Instructions: pt allergic to pencillin, but can tolerate cefalosporins Digoxin (Digoxin) 125 MCG TABLET 1 Tablet ORAL EVERY 48 HOURS (Every 2 days) Qty = 30 No Refills Instructions: . Comments: Last Taken:01/27/17 Time: 9 AM Copies To: YUNG PLUMMER,CELE Ordoñez Attending Review Statement Documenting Attending: BERKLEY KAUR MD
[2017-01-26] MEDS ORDERED: VENTOLIN HFA18 GM INH (09:40)
[2017-01-26] MEDS ORDERED: SYMBICORT 16010.2 GM INH (09:40)
[2017-01-26] MEDS ORDERED: ACIDOPHILUS LA1 EACH PO (09:40)
[2017-01-26] MEDS ORDERED: TOPROL XL100 M1 PO (09:40)
[2017-01-26] MEDS ORDERED: ELIQUIS5 M1 PO (09:40)
[2017-01-26] MEDS ORDERED: PREDNISONE10 M2 PO (09:40)
[2017-01-26] MEDS ORDERED: DIGOXIN125 MCG PO (09:40)
--- NOTE | 2017-01-26 10:36 | PN- Cardiology ---
Subjective Subjective: Patient feels well. She is anxious to be discharged. She does have mild shortness of breath without change Review of Systems: Eyes no blurred or double vision Ears no deafness or ringing Nose and throat no recurrent sinusitis Lungs per history of present illness Heart per history of present illness Abdomen no nausea vomiting Musculoskeletal occasional muscle and joint pains Psych no anxiety or depression Neuro without recurrent headache or seizures Endocrine no heat or cold intolerance Objective Vital Signs and I&Os Vital Signs Date Time Temp Pulse Resp B/P Pulse O2 O2 Flow FiO2 Ox Delivery Rate 01/26 0923 122/84 01/26 0907 97.9 75 20 122/90 98 Nasal Cannula 01/26 0839 98 Nasal 3.0L Cannula 01/26 0749 95 Nasal 3.0L Cannula 01/26 0049 98.4 81 20 112/72 96 Room Air 01/26 0000 Nasal 3.0L Cannula 01/25 1939 80 Room Air 01/25 1736 132 124/80 01/25 1649 98.5 110 20 124/80 95 Nasal Cannula 01/25 1600 94 Nasal 3.0L Cannula Intake & Output 01/26 1600 01/26 0800 01/26 0000 01/25 1600 01/25 0800 01/25 0000 Intake Total 60 410 900 240 400 Output Total 400 750 400 700 Balance -340 -340 900 -160 -300 Intake, IV 10 10 300 0 Intake, Oral 50 400 600 240 400 Number 0 2 0 0 Bowel Movements Output, Urine 400 750 400 700 Physical Exam: Patient is a well-developed well-nourished female appearing in no acute distress HEENT is unremarkable Neck is supple there is no JVD Lungs are clear Heart regular rhythm S1 and S2 are normal no murmurs gallops or rubs Abdomen bowel sounds positive Extremities without edema Current Medications: Current Medications Sig/Harmony Start time Last Medication Dose Route Stop Time Status Admin Acetaminophen 650 MG Q6P PRN 01/21 1730 AC PO Acetaminophen/ 1 TAB Q6P PRN 01/21 1730 AC Hydrocodone Bitart PO Albuterol Sulfate 3 ML EVERY 4 HRS/AWAKE 01/22 0800 AC 01/26 INH 0744 Alprazolam 0.5 MG ONCE ONE 01/25 1430 DC 01/25 PO 01/25 1431 1420 Apixaban 10 MG BID 01/22 1145 AC 01/26 PO 0922 Azithromycin 500 MG DAILY 01/22 1000 AC 01/25 Sodium Chloride 250 ML IV 1028 Ceftriaxone Sodium 1,000 MG DAILY 01/22 1000 AC 01/25 IV 1028 Digoxin 0.25 MG ONCE ONE 01/25 1145 DC 01/25 IV 01/25 1146 1736 Ibuprofen 600 MG Q8P PRN 01/22 1015 AC 01/24 PO 0243 Insulin Aspart 1 UNITS ONCE ONE 01/25 2100 DC 01/25 SC 01/25 2101 2225 Insulin Aspart 0 TIDAC 01/24 0800 AC 01/26 SC 0922 Ipratropium [place] 2.5 ML EVERY 4 HRS/AWAKE 01/22 0800 AC 01/26 INH 0745 Metoprolol Succinate 200 MG DAILY 01/25 1000 AC 01/26 PO 0923 Oxycodone/ 2 TAB Q6P PRN 01/21 1730 AC Acetaminophen PO Prednisone 40 MG DAILY 01/25 1000 AC 01/26 PO 0923 Venlafaxine HCl 75 MG DAILY 01/22 1000 AC 01/26 PO 0922 Results Last 48 Hrs of Labs/Mics: Laboratory Tests 01/25/17 0644: Anion Gap 5, Estimated GFR > 60, BUN/Creatinine Ratio 40.0 H Assessment/Plan Assessment/Plan 1. Respiratory insufficiency with hypoxia 2. Tachycardia 3. History of atrial fibrillation not on outpatient anticoagulation, now started on Elqiuis 4. Occlusive thrombus within the left posterior and left anterior tibial veins 5. History of hypertension/diabetes mellitus 6. History of cellulitis likely with a component of lymphedema 7. Possible pneumonia Recommendations 1. Continue current medications 2. Plan is for discharge home 3. Recommend patient follow-up with Dr. Orr and our office in one to 2 weeks. She will require a Holter monitor to assess for rate control. Continue telemetry? No
[2017-01-26 15:51] VITALS: BP 140/92
--- NOTE | 2017-01-26 16:46 | Cons- Pulmonary ---
General Information and HPI Consulting Request Date of Consult: 01/26/17 Requested By: Dr. Bell Reason for Consult: hypoxemia Source of Information: patient Exam Limitations: no limitations History of Present Illness: 71 year old woman. Consultation for hypoxemia. Admitted for dyspnea in setting of recent bronchitis, she is noted to have cellulitis as well. History significant for DM, a.fib, obesity, history of smoking quit 4 years ago. Does not routinely follow with physicians. Overall has had dyspnea that has been present for a few years per patient. She has not had a music promoter in the past and she has no formal pulmonary diagnoses. She presented with cough that has improved significantly since hospitalization. No cp, no palpitations. She was found to be in a.fib with RVR. Intermittent leg edema has been persistent as well. Occlusive thrombus within the left posterior and left anterior tibial veins was found. CTA 1. No evidence of pulmonary embolism. 2. No focal consolidation. Similar tree-in-bud opacities within the apical posterior left upper lobe which may represent a small area of pneumonia. Slight interval increase in patchy opacities at the lung bases. 3. Scattered bilateral pulmonary nodules. These were previously described in detail on the CT chest from January 21, 2017. 4. Ectatic descending thoracic aorta. Allergies/Medications Allergies: Coded Allergies: Penicillins (Severe, HYPOTENSION 01/21/17) clindamycin (Severe, RASH, HIVES 01/21/17) Home Med List: Albuterol Sulfate (Ventolin Hfa) 90 MCG HFA.AER.AD 2 PUF INH Q4-6 PRN PRN difficulty breathing . Alprazolam 0.5 MG TABLET 1 TAB PO DAILY NEEDED anxiety (Reported) Apixaban (Eliquis) 5 MG TABLET 1 TAB PO BID blood clot, a fibrillation please take 2 tabs(10 mg) twice daily 01/26-01/28. 1 tab( 5 mg) twice daily after 01/29. Aspirin (Aspirin*) 325 MG TABLET 1 TAB PO DAILY A FIB (Reported) Budesonide/Formoterol Fumarate (Symbicort 160-4.5 Mcg Inhaler) 160 MCG-4.5 MCG/ ACTUATION HFA.AER.AD 2 PUF INH BID difficulty breathing . Cefpodoxime Proxetil 200 MG TABLET 1 TAB PO BID pneumonia pt allergic to pencillin, but can tolerate cefalosporins Digoxin 125 MCG TABLET 1 TAB PO Q48 atrial fibrillation . Lactobacillus Acidophilus (Acidophilus Lactobacillus) 1 EACH CAPSULE 1 CAP PO DAILY probiotics . Metoprolol Succ XL (Toprol XL) 100 MG TAB.ER.24H 2 TAB PO DAILY HTN .. Metoprolol Succinate 100 MG TAB.ER.24H 1 TAB PO DAILY HEART (Reported) Prednisone 10 MG TABLET 1 TAB PO DAILY difficulty breathing On Take Please take- 01/27-01/28 30 MG 01/29-01/30 20 MG 01/31-02/01 10 MG Please stop on 02/01/17. Then Stop Venlafaxine HCl (Venlafaxine HCl ER) 75 MG CAP.ER.24H 1 CAP PO DAILY MENTAL HEALTH (Reported) Current Medications: Current Medications Sig/Harmony Start time Last Medication Dose Route Stop Time Status Admin Acetaminophen 650 MG Q6P PRN 01/21 1730 AC PO Acetaminophen/ 1 TAB Q6P PRN 01/21 1730 AC Hydrocodone Bitart PO Albuterol Sulfate 3 ML EVERY 4 HRS/AWAKE 01/22 0800 AC 01/26 INH 1604 Alprazolam 0.5 MG ONCE ONE 01/26 1545 DC PO 01/26 1546 Apixaban 10 MG BID 01/22 1145 AC 01/26 PO 0922 Azithromycin 500 MG DAILY 01/22 1000 DC 01/26 Sodium Chloride 250 ML IV 1230 Ceftriaxone Sodium 1,000 MG DAILY 01/22 1000 DC 01/26 IV 1231 Ibuprofen 600 MG Q8P PRN 01/22 1015 AC 01/24 PO 0243 Insulin Aspart 1 UNITS ONCE ONE 01/25 2100 DC 01/25 SC 01/25 2101 2225 Insulin Aspart 0 TIDAC 01/24 0800 AC 01/26 SC 1230 Ipratropium [place] 2.5 ML EVERY 4 HRS/AWAKE 01/22 0800 AC 01/26 INH 1604 Metoprolol Succinate 200 MG DAILY 01/25 1000 AC 01/26 PO 0923 Oxycodone/ 2 TAB Q6P PRN 01/21 1730 AC Acetaminophen PO Patient Medication 1 ED .STK-MED ONE 01/26 1355 DC Teaching ED 01/26 1356 Prednisone 40 MG DAILY 01/25 1000 AC 01/26 PO 0923 Venlafaxine HCl 75 MG DAILY 01/22 1000 AC 01/26 PO 0922 Review of Systems Comments 18 pt ros performed pertinent positives and negatives in HPI, otherwiswe negative Past History Travel History Traveled to [place] past 21 day No Medical History Blood Transfusion Hx: No Neurological: NONE EENT: NONE Cardiovascular: AFIB, PVD Respiratory: bronchitis Gastrointestinal: NONE Hepatic: NONE Renal: NONE Musculoskeletal: fracture, ELBOW FX CELLULITIS Psychiatric: anxiety, depression Endocrine: NONE Blood Disorders: NONE Cancer(s): NONE 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 Home Who Do You Live With? self Services at Home: None Smoking Status: Former Smoker ETOH Use: denies use Illicit Drug Use: denies illicit drug use Employment History Employment: Retired Exam & Diagnostic Data Last 24 Hrs of Vital Signs/I&O Vital Signs Date Time Temp Pulse Resp B/P Pulse O2 O2 Flow FiO2 Ox Delivery Rate 01/26 1636 91 Nasal 2.0L Cannula 01/26 1630 93 Nasal 2.0L Cannula 01/26 1551 98.6 125 20 140/92 95 Nasal 2.0L Cannula 01/26 1300 92 Nasal 2.0L Cannula 01/26 0923 122/84 01/26 0907 97.9 75 20 122/90 98 Nasal Cannula 01/26 0839 98 Nasal 3.0L Cannula 01/26 0749 95 Nasal 3.0L Cannula 01/26 0049 98.4 81 20 112/72 96 Room Air 01/26 0000 Nasal 3.0L Cannula 01/25 1939 80 Room Air 01/25 1736 132 124/80 01/25 1649 98.5 110 20 124/80 95 Nasal Cannula Intake & Output 01/26 1600 01/26 0800 01/26 0000 Intake Total 700 60 410 Output Total 700 400 750 Balance 0 -340 -340 Intake, IV 300 10 10 Intake, Oral 400 50 400 Number 0 Bowel Movements Output, Urine 700 400 750 Patient 239 lb Weight Physical Exam Other Physical Findings: gen awake and alert heent ncat cvs s1, s2, tachycardic lungs rare rhonchi abd obese ext chronic changes Last 48 Hrs of Labs/Parrish: Laboratory Tests 01/25/17 0644: Anion Gap 5, Estimated GFR > 60, BUN/Creatinine Ratio 40.0 H Assessment/Plan Impression/Plan: Impression 71 year old woman. Consultation for hypoxemia. * hypoxemia is likely chronic in nature with an acute component secondary to bronchitis vs CAP * Occlusive thrombus within the left posterior and left anterior tibial veins was found. * pulmonary nodules * a.fib * cellulitis Plan - f/u cardiology recs - o2 sat goal >88% - pfts as outpatient - on ventolin and symbicort - would continue for now until PFTs - will require ct chest follow up for pulmonary nodules as outpt - o2 arranged, patient understands importance, but reluctant to use it - ensure she has o2 available for 24/7 use including an in-home concentrator DVT prophylaxis at all timess Will see in office after discharge Consult Acknowledgment - Thank you for your consult request.
[2017-01-27] VITALS: BP 132/76
--- NOTE | 2017-01-27 05:53 | PN- Housestaff ---
See Addendum EMEPRATRIZ FRIEDMAN 01/27/17 0552: Subjective Follow-up For: - Pneumonia - Atrial fibrillation Complaints: no complaints Subjective: She was comfortable this morning. Vitals were stable overnight. Oxygen saturation above 92% on 2 L oxygen. On ambulation, oxygen saturations dropped to 88% on room air. Made arrangements for oxygen. Explained to her about further follow-ups, and medication adherence. She did not have any complaints. Received a phone call from [employer], that Symbicort is not covered on current insurance. Informed them that the patient needs to follow up with a sales service coordinator for continuation of this medication. Will inform the sales service coordinator in the a.m. Review of Systems Constitutional: Reports: see HPI. Objective Last 24 Hrs of Vital Signs/I&O Vital Signs Date Time Temp Pulse Resp B/P Pulse O2 O2 Flow FiO2 Ox Delivery Rate 01/27 0000 Nasal 2.0L Cannula 01/27 0000 97.6 98 24 132/76 94 Nasal 2.0L Cannula 01/26 2049 93 Nasal 2.0L Cannula 01/26 1636 91 Nasal 2.0L Cannula 01/26 1630 93 Nasal 2.0L Cannula 01/26 1551 98.6 125 20 140/92 95 Nasal 2.0L Cannula 01/26 1300 92 Nasal 2.0L Cannula 01/26 0923 122/84 01/26 0907 97.9 75 20 122/90 98 Nasal Cannula 01/26 0839 98 Nasal 3.0L Cannula 01/26 0749 95 Nasal 3.0L Cannula Intake & Output 01/27 0800 01/27 0000 01/26 1600 Intake Total 900 700 Output Total 750 700 Balance 150 0 Intake, IV 250 300 Intake, Oral 650 400 Number 0 Bowel Movements Output, Urine 750 700 Patient 239 lb Weight Physical Exam General Appearance: No Acute Distress Other Physical Findings: General Exam: AAOx3, No acute distress, Skin: No rashes, no breakdown HEENT: PERRLA, EOMI Neck: Supple, No JVD No cervical lymphadenopathy CVS: Reg Rate, Normal S1,S2, No MGR Resp: Normal air entry, no ronchi/rales Abdomen: Soft, No tenderness, Normal Bowel Sounds Neuro: Normal Speech, Strength 5/5 b/l x 4 extremities, Sensation intact, CN III -XII NL, Reflexes 2+ Extremities: No cyanosis, pedal edema Current Medications: Current Medications Sig/Harmony Start time Last Medication Dose Route Stop Time Status Admin Acetaminophen 650 MG Q6P PRN 01/21 1730 AC PO Acetaminophen/ 1 TAB Q6P PRN 01/21 1730 AC Hydrocodone Bitart PO Albuterol Sulfate 3 ML EVERY 4 HRS/AWAKE 01/22 0800 AC 01/26 INH 1942 Alprazolam 0.5 MG ONCE ONE 01/26 1545 DC 01/26 PO 01/26 1546 2258 Apixaban 10 MG BID 01/22 1145 AC 01/26 PO 2258 Azithromycin 500 MG DAILY 01/22 1000 DC 01/26 Sodium Chloride 250 ML IV 1230 Ceftriaxone Sodium 1,000 MG DAILY 01/22 1000 DC 01/26 IV 1231 Ibuprofen 600 MG Q8P PRN 01/22 1015 AC 01/24 PO 0243 Insulin Aspart 0 TIDAC 01/24 0800 AC 01/26 SC 1650 Ipratropium [place] 2.5 ML EVERY 4 HRS/AWAKE 01/22 0800 AC 01/26 INH 1942 Metoprolol Succinate 200 MG DAILY 01/25 1000 AC 01/26 PO 0923 Oxycodone/ 2 TAB Q6P PRN 01/21 1730 AC Acetaminophen PO Patient Medication 1 ED .STK-MED ONE 01/26 1355 LA Teaching ED 01/26 1356 Prednisone 40 MG DAILY 01/25 1000 AC 01/26 PO 0923 Venlafaxine HCl 75 MG DAILY 01/22 1000 AC 01/26 PO 0922 Assessment/Plan Assessment: Ms Murphy is a 71-year-old woman with a past history of atrial fibrillation, mental health issues is being evaluated for cough, fever, shortness of breath 4-5 days. Plan - Acute hypoxemic respiratory failure secondary to community-acquired pneumonia * Titrate oxygen as tolerated. * We will continue injection ceftriaxone and azithromycin. Discharge the patient on cefpodoxime which will cover the usual microorganisms for community- acquired pneumonia. * L[facility] culture not sent. * Metoprolol 40 mg by mouth daily. Prednisone taper at the time of discharge. * TRC and nebs. Symbicort and Ventolin has been added to discharge CMR, out of which Symbicort would not be covered by her insurance. Alternatives-Advair/ Breo. Deferred the decision to the sales service coordinator at this time. * Serum bicarbonate elevated, likely from metabolic compensation. Steroid-induced hyperglycemia - * Blood sugar measurment TID HS * NovoLog according to low dose sliding scale Atrial fibrillation, new onset - HR 110 -120 * We will continue tablet Eliquis 10 mg twice a day for 10 days followed by 5 mg by mouth twice a day. * We will continue tablet metoprolol XL 200mg by mouth daily. * Digoxin IV 250 g 1 IV. 125 g by mouth every 48. Superficial thrombophlebitis - * Warm compresses and Motrin as needed DVT prophylaxis-apixaban. Diet -heart healthy diet CODE STATUS -full code Problem List: 1. Rapid atrial fibrillation 2. Pneumonia Pain Ratin Pain Location: None Pain Goal: Pain 4 or less Pain Plan: Tylenol when necessary Tomorrow's Labs & Rationales: No labs. DVT/Prophylaxis: pharmacological Consulting Request: Consulting Specialty: Cardiology PARMINDER CHAVIS MD 01/27/17 8598: Attending MD Review Statement Attending Statement Attending MD Statement: examined this patient, discuss w/resident/PA/MUSICAL INSTRUMENT SUPERVISOR, agreed w/resident/PA/MUSICAL INSTRUMENT SUPERVISOR, reviewed EMR data (avail), discussed with nursing, discussed with case mgmt, amended to note Attending Assessment/Plan: The patient was discussed with house staff and agree with the plan of care as outlined. Pulse ox was good and OK to discharge to home today.
[2017-01-27 08:00] VITALS: BP 118/76
[2017-01-27 09:57] VITALS: BP 116/68
--- NOTE | 2017-01-27 11:18 | NUR ---
1100 - PT AMBULATED DOWN THE SNOW, RR 20 SPO2 92% 2L NC, EXSOB. PT RESTING IN HER ROOM AT THIS TIME.
--- NOTE | 2017-01-27 11:35 | PN- Pulmonary ---
Subjective HPI/Critical Care Issues: pt seen and examined on o2 tachycardia improved on 2LNC Objective Current Medications: Current Medications Sig/Harmony Start time Last Medication Dose Route Stop Time Status Admin Acetaminophen 650 MG Q6P PRN 01/21 1730 AC PO Acetaminophen/ 1 TAB Q6P PRN 01/21 1730 AC Hydrocodone Bitart PO Albuterol Sulfate 3 ML EVERY 4 HRS/AWAKE 01/22 0800 AC 01/26 INH 1942 Alprazolam 0.5 MG ONCE ONE 01/26 1545 DC 01/26 PO 01/26 1546 2258 Apixaban 10 MG BID 01/22 1145 AC 01/27 PO 0901 Azithromycin 500 MG DAILY 01/22 1000 DC 01/26 Sodium Chloride 250 ML IV 1230 Ceftriaxone Sodium 1,000 MG DAILY 01/22 1000 DC 01/26 IV 1231 Digoxin 0.125 MG Q48 01/27 1000 AC 01/27 PO 0901 Ibuprofen 600 MG Q8P PRN 01/22 1015 AC 01/24 PO 0243 Insulin Aspart 0 TIDAC 01/24 0800 AC 01/27 SC 0800 Ipratropium [place] 2.5 ML EVERY 4 HRS/AWAKE 01/22 0800 AC 01/27 INH 0905 Metoprolol Succinate 200 MG DAILY 01/25 1000 AC 01/27 PO 0901 Oxycodone/ 2 TAB Q6P PRN 01/21 1730 AC Acetaminophen PO Patient Medication 1 ED .STK-MED ONE 01/26 1355 DC Teaching ED 01/26 1356 Prednisone 30 MG DAILY 01/27 1000 AC 01/27 PO 0901 Prednisone 40 MG DAILY 01/25 1000 DC 01/26 PO 0923 Venlafaxine HCl 75 MG DAILY 01/22 1000 AC 01/27 PO 0901 Vital Signs & I&O Last 24 Hrs of Vitals and I&O: Vital Signs Date Time Temp Pulse Resp B/P Pulse O2 O2 Flow FiO2 Ox Delivery Rate 01/27 1118 20 92 Nasal 2.0L Cannula 01/27 0957 98 18 116/68 93 Nasal 2.0L Cannula 01/27 0908 92 Nasal 2.0L Cannula 01/27 0901 96 112/68 01/27 0901 96 112/68 01/27 0800 93 Nasal 2.0L Cannula 01/27 0800 98.1 96 22 118/76 92 01/27 0000 Nasal 2.0L Cannula 01/27 0000 97.6 98 24 132/76 94 Nasal 2.0L Cannula 01/26 2049 93 Nasal 2.0L Cannula 01/26 1636 91 Nasal 2.0L Cannula 01/26 1630 93 Nasal 2.0L Cannula 01/26 1551 98.6 125 20 140/92 95 Nasal 2.0L Cannula 01/26 1300 92 Nasal 2.0L Cannula Intake & Output 01/27 1600 01/27 0800 01/27 0000 Intake Total 100 900 Output Total 600 750 Balance -500 150 Intake, IV 0 250 Intake, Oral 100 650 Number 1 0 Bowel Movements Output, Urine 600 750 Exam Other Physical Findings: gen awake and alert heent ncat cvs s1, s2, tachycardic lungs rare rhonchi abd obese ext chronic changes Impression/Plan Impression/Plan Impression/Plan: Impression 71 year old woman. Consultation for hypoxemia. * hypoxemia is likely chronic in nature with an acute component secondary to bronchitis vs CAP * Occlusive thrombus within the left posterior and left anterior tibial veins was found. * pulmonary nodules * a.fib * cellulitis Plan - f/u cardiology recs - o2 sat goal >88% - pfts as outpatient - on ventolin and symbicort - would continue for now until PFTs - will require ct chest follow up for pulmonary nodules as outpt - o2 arranged, patient understands importance, but reluctant to use it - ensure she has o2 available for 24/7 use including an in-home concentrator DVT prophylaxis at all timess Will see in office after discharge
--- NOTE | 2017-01-27 11:45 | NUR ---
PT AMB DOWN THE SNOW WITHOUT O2, RR 20 SPO2 88%.
--- NOTE | 2017-01-27 12:32 | PN- Cardiology ---
Subjective Subjective: Doing well. Breathing is improving. Still with no palpitations. Objective Vital Signs and I&Os Vital Signs Date Time Temp Pulse Resp B/P Pulse O2 O2 Flow FiO2 Ox Delivery Rate 01/27 1151 18 92 Nasal 2.0L Cannula 01/27 1130 20 88 Room Air 01/27 1118 20 92 Nasal 2.0L Cannula 01/27 0957 98 18 116/68 93 Nasal 2.0L Cannula 01/27 0908 92 Nasal 2.0L Cannula 01/27 0901 96 112/68 01/27 0901 96 112/68 01/27 0800 93 Nasal 2.0L Cannula 01/27 0800 98.1 96 22 118/76 92 01/27 0000 Nasal 2.0L Cannula 01/27 0000 97.6 98 24 132/76 94 Nasal 2.0L Cannula 01/26 2049 93 Nasal 2.0L Cannula 01/26 1636 91 Nasal 2.0L Cannula 01/26 1630 93 Nasal 2.0L Cannula 01/26 1551 98.6 125 20 140/92 95 Nasal 2.0L Cannula 01/26 1300 92 Nasal 2.0L Cannula Intake & Output 01/27 1600 01/27 0800 01/27 0000 01/26 1600 01/26 0800 01/26 0000 Intake Total 100 900 700 60 410 Output Total 600 750 700 400 750 Balance -500 150 0 -340 -340 Intake, IV 0 250 300 10 10 Intake, Oral 100 650 400 50 400 Number 1 0 0 Bowel Movements Output, Urine 600 750 700 400 750 Patient 239 lb Weight Physical Exam: General: no apparent distress. Alert. On nasal cannula. Obese Eyes: No obvious scleral icterus. HEENT: No jugular venous distention or abnormal jugular venous pulsations. Cardiovascular: Normal intensity S1/S2. Irregular. Abdomen: no guarding or rebound tenderness. Musculoskeletal: No clubbing or cyanosis noted, trace lower extremity edema Skin: Warm Neurologic: No gross focal deficits noted. Current Medications: Current Medications Sig/Harmony Start time Last Medication Dose Route Stop Time Status Admin Acetaminophen 650 MG Q6P PRN 01/21 1730 AC PO Acetaminophen/ 1 TAB Q6P PRN 01/21 1730 AC Hydrocodone Bitart PO Albuterol Sulfate 3 ML EVERY 4 HRS/AWAKE 01/22 0800 AC 01/26 INH 1942 Alprazolam 0.5 MG ONCE ONE 01/26 1545 DC 01/26 PO 01/26 1546 2258 Apixaban 10 MG BID 01/22 1145 AC 01/27 PO 0901 Azithromycin 500 MG DAILY 01/22 1000 DC 01/26 Sodium Chloride 250 ML IV 1230 Ceftriaxone Sodium 1,000 MG DAILY 01/22 1000 DC 01/26 IV 1231 Digoxin 0.125 MG Q48 01/27 1000 AC 01/27 PO 0901 Ibuprofen 600 MG Q8P PRN 01/22 1015 AC 01/24 PO 0243 Insulin Aspart 0 TIDAC 01/24 0800 AC 01/27 SC 1220 Ipratropium [place] 2.5 ML EVERY 4 HRS/AWAKE 01/22 0800 AC 01/27 INH 0905 Metoprolol Succinate 200 MG DAILY 01/25 1000 AC 01/27 PO 0901 Oxycodone/ 2 TAB Q6P PRN 01/21 1730 AC Acetaminophen PO Patient Medication 1 ED .STK-MED ONE 01/26 1355 DC Teaching ED 01/26 1356 Prednisone 30 MG DAILY 01/27 1000 AC 01/27 PO 0901 Prednisone 40 MG DAILY 01/25 1000 DC 01/26 PO 0923 Venlafaxine HCl 75 MG DAILY 01/22 1000 AC 01/27 PO 0901 Results Last 48 Hrs of Labs/Mics: Laboratory Tests 01/25/17 0644: Anion Gap 5, Estimated GFR > 60, BUN/Creatinine Ratio 40.0 H Recent Imaging Studies: Patient no longer on telemetry Assessment/Plan Assessment/Plan 1. Respiratory insufficiency with hypoxia 2. Tachycardia 3. History of atrial fibrillation not on outpatient anticoagulation, now started on Elqiuis 4. Occlusive thrombus within the left posterior and left anterior tibial veins 5. History of hypertension/diabetes mellitus 6. History of cellulitis likely with a component of lymphedema 7. Possible pneumonia She is feeling better. Still no palpitations. Heart rate is now well controlled on the current regimen. Remains on Eliquis without bleeding. Remains on nasal cannula oxygen. Cardiac status appears stable and she is instructed to follow-up with Dr. Orr within one week of discharge. Marek June MD [facility] Continue telemetry? Not applicable
== END 2017-01-27 13:00 | disposition home health service (06) | DRG 871 ==
LOC: ENRESERVDT → ENRESERVTM → ERH 12:28 → ENPENDDIS 16:27 → 1NO 16:27 → ERHI 16:27 → ERH 16:27 → 1NO 21:12
PROVIDERS: Internal Medicine; Internal Medicine Endocrinology, Diabetes & Metabolism; Physician Assistant; ADMIT Hospitalist
DX: A41.9 Sepsis, unspecified organism (principal); J96.01 Acute respiratory failure with hypoxia; J18.9 Pneumonia, unspecified organism; I48.2 Chronic atrial fibrillation; J44.1 Chronic obstructive pulmonary disease with (acute) exacerbation; I80.02 Phlebitis and thrombophlebitis of superficial vessels of left lower extremity; E87.1 Hypo-osmolality and hyponatremia; L03.115 Cellulitis of right lower limb; E66.9 Obesity, unspecified; Z68.37 Body mass index [BMI] 37.0-37.9, adult; I73.9 Peripheral vascular disease, unspecified; F41.8 Other specified anxiety disorders; R91.1 Solitary pulmonary nodule; Z87.891 Personal history of nicotine dependence; R00.0 Tachycardia, unspecified
CPT/HCPCS: 1NP; 36415; 81001; 82436; 87040; 87045; 87070; 87086; 87449; 87450; 87804; 87804-59; 93005; 93010; 93306; 93970; 96374; 96375; 97116-GO; 97161-GP; J0456; J0696; J1160; J1644; J2920; J7040; J7060; J7508; J7512

== ENCOUNTER 2017-03-28 15:22 | Emergency (ER) | payer OTHER, MEDICARE ==
[~2017-03-28] VITALS: Ht 167.6 cm; Wt 108.0 kg
[~2017-03-28 15:22] MED LIST changes: +ACIDOPHILUS LA1 EACH PO; +ALPRAZOLAM0.5 M4 PO; +ASPIRIN325 M2 PO; +CEFPODOXIME PR200 M2 PO; +DIGOXIN125 MCG PO; +ELIQUIS5 M1 PO; +METOPROLOL SUC100 M2 PO; +PREDNISONE10 M2 PO; +PREDNISONE20 M1 PO; +SYMBICORT 16010.2 GM INH; +TOPROL XL100 M1 PO; +VENLAFAXINE HCL75 M1 PO; +VENTOLIN HFA18 GM INH
[2017-03-28 15:33] VITALS: BP 118/72
--- NOTE | 2017-03-28 15:50 | ED UPPER/LOWER EXTREMITY COMPL ---
History of Present Illness General Chief Complaint: General Adult Stated Complaint: LT LEG REDNESS/SWELLING Source: patient Exam Limitations: no limitations Vital Signs & Intake/Output Vital Signs & Intake/Output Vital Signs Date Time Temp Pulse Resp B/P B/P Pulse O2 O2 Flow FiO2 Mean Ox Delivery Rate 03/28 1533 98.4 113 16 118/72 94 Allergies Coded Allergies: Penicillins (Severe, HYPOTENSION 01/21/17) clindamycin (Severe, RASH, HIVES 01/21/17) Reconcile Medications Albuterol Sulfate (Ventolin Hfa) 90 MCG HFA.AER.AD 2 PUF INH Q4-6 PRN PRN difficulty breathing . Alprazolam 0.5 MG TABLET 1 TAB PO DAILY NEEDED anxiety (Reported) Apixaban (Eliquis) 5 MG TABLET 1 TAB PO BID blood clot, a fibrillation please take 2 tabs(10 mg) twice daily 01/26-01/28. 1 tab( 5 mg) twice daily after 01/29. Budesonide/Formoterol Fumarate (Symbicort 160-4.5 Mcg Inhaler) 160 MCG-4.5 MCG/ ACTUATION HFA.AER.AD 2 PUF INH BID difficulty breathing . Cefpodoxime Proxetil 200 MG TABLET 1 TAB PO BID pneumonia pt allergic to pencillin, but can tolerate cefalosporins Cefpodoxime Proxetil 200 MG TABLET 1 TAB PO BID pneumonia pt allergic to pencillin, but can tolerate cefalosporins Cephalexin (Keflex) 500 MG CAPSULE 1 CAP PO BID cellulitis Clotrimazole (Lotrimin AF) 1 % CREAM..G. 1 JAYLEEN TOP BID fungal infection apply to affected area(s) Digoxin 125 MCG TABLET 1 TAB PO Q48 atrial fibrillation . Lactobacillus Acidophilus (Acidophilus Lactobacillus) 1 EACH CAPSULE 1 CAP PO DAILY probiotics . Metoprolol Succ XL (Toprol XL) 100 MG TAB.ER.24H 2 TAB PO DAILY HTN .. Prednisone 10 MG TABLET 1 TAB PO DAILY difficulty breathing On Take Please take- 01/27-01/28 30 MG 01/29-01/30 20 MG 01/31-02/01 10 MG Please stop on 02/01/17. Then Stop Venlafaxine HCl (Venlafaxine HCl ER) 75 MG CAP.ER.24H 1 CAP PO DAILY MENTAL HEALTH (Reported) Triage Note: PT STATES SHE HAS REDNESS AND DRAINAGE TO HER BILAT LOWER EXT. THAT HAS BEEN GOING ON FOR ABOUT 1 WEEK. PT STATES THIS HAS HAPPEND TO HER IN THE PAST BUT SHE STATES THIS TIME SHE IS HAVING MORE PAIN AND SWELLING. Triage Nurses Notes Reviewed? 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 Patient denies any pedal edema denies any fever chills shortness of breath cough chest pain hemoptysis dyspnea on exertion or exertional pain. Patient does know of yellow discharge to the region (ELIZABETH MCKEON) Past History Travel History Traveled to [place] past 21 day No Medical History Any Pertinent Medical History? see below for history Neurological: NONE EENT: NONE Cardiovascular: AFIB, PVD Respiratory: bronchitis Gastrointestinal: NONE Hepatic: NONE Renal: NONE Musculoskeletal: fracture, ELBOW FX CELLULITIS Psychiatric: anxiety, depression Endocrine: NONE Blood Disorders: NONE Cancer(s): NONE PAINT POURER/Reproductive: NONE History of MRSA: No History of VRE: No History of CDIFF: No Surgical History Surgical History: non-contributory Psychosocial History Who do you live with Patient/Self Services at Home None What is your primary language [place]an Tobacco Use: Quit >30 days ago ETOH Use: denies use Illicit Drug Use: denies illicit drug use Family History Family History, If Any: Relation not specified for: *No pertinent family history Hx Contributory? No (ELIZABETH MCKEON) Review of Systems Review of Systems Constitutional: Reports: no symptoms. EENTM: Reports: no symptoms. Respiratory: Reports: see HPI. Denies: cough, hemoptysis, short of breath. Cardiovascular: Denies: chest pain. Gastrointestinal/Abdominal: Reports: no symptoms. Genitourinary: Reports: no symptoms. Musculoskeletal: Reports: no symptoms. Skin: Reports: see HPI. Neurological/Psychological: Reports: no symptoms. Hematologic/Endocrine: Reports: no symptoms. Immunological: Reports: no symptoms. All Other Systems: Reviewed and Negative (ELIZABETH MCKEON) Physical Exam Physical Exam General Appearance: no apparent distress, comfortable Head: atraumatic Eyes: Bilateral: normal appearance. Ears, Nose, Throat: hearing grossly normal Neck: normal inspection Peripheral Pulses: 2+ radial (R), 2+ radial (L) Neurologic/Tendon: normal sensation, normal motor functions, normal tendon functions, responds to pain, no evidence tendon injury, no pulse deficit Lymphatic: no anterior cervical hans Comments: Left ankle normal inspection nontender full active range of motion Left foot normal inspection nontender pedal pulse +2 left lower extremity dermatomes intact Diagram Legs Front/Back 1) Noted INFLAMMED MILDLY WEEPING SKIN IRRITATION WITH no warmth no fluctuance no induration and no erythema (ELIZABETH MCKEON) Progress Differential Diagnosis: arterial insufficiency, cellulitis, CHF, compartment syndrome, contusion, dislocation, DVT Plan of Care: Patient's distal extremities were neurovascularly intact. No concerns of pedal edema no concerns of lower extremity swelling or DVT concerns. Patient denies any cardiovascular or respiratory complaints. Patient will also be treated for concerns of surrounding fungal infection due to the exam findings and patient's itching complaints. Patient will also be covered for minimal concerns of cellulitis. I applied bandages with FLUFTEX to the wound. Patient denies any systemic OF FEVER Discussed disposition and plan with Dr. Muse who agrees (ELIZABETH MCKEON) Departure Departure Disposition: HOME OR SELF CARE Condition: Stable Clinical Impression Primary Impression: Leg pain Secondary Impressions: Cellulitis of leg, left Referrals: YUNG PLUMMER,CELE Ordoñez (PCP/Family) Additional Instructions: As discussed begin to elevate your feet for swelling. Begin to use the bandages provided to the emergency room and change dressings once a day. On Wednesday follow-up and establish the camouflage specialist at [facility]. Begin the prescription of Keflex for the full course. If symptoms worsen return to emergency room Continue home medications as directed Begin the prescription of Lotrimin as directed prescription is waiting at [facility] Departure Forms: Customer Survey General Discharge Information Prescriptions: Current Visit Scripts Cephalexin (Keflex) 1 CAP PO BID #20 CAP Clotrimazole (Lotrimin AF) 1 JAYLEEN TOP BID #24 GM apply to affected area(s) (ELIZABETH MCKEON) PA/AIR AND WATER FILLER Co-Sign Statement Statement: ED Attending supervision documentation- [X] I saw and evaluated the patient. I have also reviewed all the pertinent lab results and diagnostic results. I agree with the findings and the plan of care as documented in the PA's/AIR AND WATER FILLER's documentation. [X] I have reviewed the ED Record and agree with the PA's/AIR AND WATER FILLER's documentation. [] Additions or exceptions (if any) to the PAs/AIR AND WATER FILLER's note and plan are summarized below: [] (MAHENDRA PLUMMER,CHARANJIT Ordoñez)
[2017-03-28] MEDS ORDERED: KEFLEX500 M1 PO (16:20)
[2017-03-28] MEDS ORDERED: LOTRIMIN AF12 GM TOP (16:40)
== END 2017-03-28 16:54 ==
LOC: ERH 15:22
DX: M79.605 Pain in left leg (principal); L03.116 Cellulitis of left lower limb